=== PATIENT | male | born 1975 | race Two or more races ===

== ENCOUNTER 2017-02-06 14:54 | Inpatient (IN) | payer OTHER ==
[2017-02-06 20:37] VITALS: BMI 22.2
--- NOTE | 2017-02-06 22:18 | HP ---
CIWA Score - CIWA Score Nausea/Vomitin-Mild Nausea/No Vomiting Muscle Tremors: 4-Moderate,w/Arms Extend Anxiety: 4-Mod. Anxious/Guarded Agitation: 4-Moderately Restless Paroxysmal Sweats: 1-Minimal Palms Moist Orientation: 1-Uncertain about Date Tacttile Disturbances: 0-None Auditory Disturbances: 0-None Visual Disturbances: 0-None Headache: 1-Very Mild CIWA-Ar Total Score: 16 Admission ROS BHS - HPI Chief Complaint: withdrawal sx Allergies/Adverse Reactions: Allergies Allergy/AdvReac Type Severity Reaction Status Date / Time No Known Allergies Allergy Verified 06/13/16 11:32 History of Present Illness: 41 years old male with long history of alcohol cocaine nicotine dependence denies medical denies mental illness is admitted to detox Exam Limitations: No Limitations - Ebola screening Have you traveled outside of the country in the last 21 days: No Have you had contact with anyone from an Ebola affected area: No Have you been sick,other than usual withdrawal symptoms: No Do you have a fever: No - Review of Systems Constitutional: Chills, Loss of Appetite, Changes in sleep, Unintentional Wgt. Loss, Unexplained wgt Loss EENT: reports: No Symptoms Reported Respiratory: reports: No Symptoms reported Cardiac: reports: No Symptoms Reported GI: reports: Nausea, Poor Appetite, Poor Fluid Intake, Abdominal cramping : reports: No Symptoms Reported Integumentary: reports: Change in Color (iv opioid hands) Neuro: reports: Tremors Endocrine: reports: No Symptoms Reported Hematology: reports: No Symptoms Reported Psychiatric: reports: Judgement Intact, Mood/Affect Appropiate Other Systems: Reviewed and Negative Patient History - Patient Medical History Hx Anemia: No Hx Asthma: No Hx Chronic Obstructive Pulmonary Disease (COPD): No Hx Cancer: No Hx Cardiac Disorders: No Hx Congestive Heart Failure: No Hx Hypertension: No Hx Hypercholesterolemia: No Hx Pacemaker: No HX Cerebrovascular Accident: No Hx Seizures: No Hx Dementia: No Hx Diabetes: No Hx Gastrointestinal Disorders: No Hx Liver Disease: No Hx Genitourinary Disorders: No Hx Sexually Transmitted Disorders: No Hx Renal Disease (ESRD): No Hx Thyroid Disease: No Hx Human Immunodeficiency Virus (HIV): No (NEGATIVE HX-11/27) Hx Hepatitis C: No Hx Depression: No Hx Suicide Attempt: No Hx Bipolar Disorder: No Hx Schizophrenia: No - Patient Surgical History Past Surgical History: No Hx Neurologic Surgery: No Hx Cataract Extraction: No Hx Cardiac Surgery: No Hx Lung Surgery: No Hx Breast Surgery: No Hx Breast Biopsy: No Hx Abdominal Surgery: No Hx Appendectomy: No Hx Cholecystectomy: No Hx Genitourinary Surgery: No Hx Orthopedic Surgery: No - PPD History Previous Implant?: Yes Documented Results: Positive w/o proof Implanted On Prior [facility] Admission?: No Results: CXR(-)05/05/15 PPD to be Administered?: No - Smoking Cessation Smoking history: Current every day smoker Have you smoked in the past 12 months: Yes Aproximately how many cigarettes per day: 20 Cigars Per Day: 0 Hx Chewing Tobacco Use: No Initiated information on smoking cessation: Yes 'Breaking Loose' booklet given: 02/06/17 - Substance & Tx. History Hx Alcohol Use: Yes Hx Substance Use: Yes Substance Use Type: Alcohol, Cocaine, Heroin, Opiates Hx Substance Use Treatment: Yes - Substances Abused Alcohol Route: Oral Frequency: Daily Amount used: Vodka 3 pints Age of first use: 18 Date of Last Use: 02/06/17 Alprazolam (Xanax) Route: Oral Frequency: Daily Amount used: 4 mg Age of first use: 31 Date of Last Use: 02/06/17 Benzodiazepine (Klonopin) Route: Oral Frequency: Daily Amount used: 5mg Age of first use: 33 Date of Last Use: 02/05/17 Family Disease History - Family Disease History Family Disease History: Heart Disease: Father (), Mother () Admission Physical Exam [facility] - Vital Signs Vital Signs: Vital Signs - 24 hr 02/06/17 20:33 Temperature 96.9 F L Pulse Rate 61 Respiratory 20 Rate Blood Pressure 103/63 - Physical General Appearance: Yes: Appropriately Dressed, Mild Distress, Thin, Tremorous, Irritable, Sweating, Anxious HEENTM: Yes: Hearing grossly Normal, Normal ENT Inspection, Normocephalic, Normal Voice Respiratory: Yes: Chest Non-Tender, Lungs Clear, Normal Breath Sounds, No Respiratory Distress, No Accessory Muscle Use Neck: Yes: Supple, Trachea in good position Breast: Yes: Breasts Symetrical Cardiology: Yes: Regular Rhythm, S1, S2, Bradycardia Abdominal: Yes: Non Tender, Soft Genitourinary: Yes: Within Normal Limits Back: Yes: Normal Inspection Musculoskeletal: Yes: full range of Motion, Gait Steady Extremities: Yes: Normal Range of Motion, Non-Tender, Tremors Neurological: Yes: Alert, Motor Strength 5/5, Normal Mood/Affect, Normal Response Integumentary: Yes: Warm Lymphatic: Yes: Within Normal Limits - Diagnostic (1) Methadone maintenance therapy patient Current Visit: Yes Status: Chronic Comment: 60 mg verification pending (2) Nicotine dependence Current Visit: Yes Status: Acute Qualifiers: Nicotine product type: cigarettes Substance use status: in withdrawal Qualified Code(s): F17.213 - Nicotine dependence, cigarettes, with withdrawal (3) Alcohol dependence with uncomplicated withdrawal Current Visit: Yes Status: Acute (4) Sedative, hypnotic or anxiolytic dependence with withdrawal, uncomplicated Current Visit: Yes Status: Acute (5) Positive PPD, treated Current Visit: Yes Status: Resolved (6) Weight loss Current Visit: Yes Status: Acute Cleared for Admission [facility] - Detox or Rehab [facility] Level of Care: Medically Managed Detox Regimen/Protocol: Librium [facility] Breath Alcohol Content Breath Alcohol Content: 0 Urine Drug Screen - Results Drug Screen Negative: No Urine Drug Screen Results: YULIET-Cocaine, OPI-Opiates, MTD-Methadone
[2017-02-06] MEDS ORDERED: LOPERAMIDE HCL 2 MG CAPSULE PO PRN (22:23)
[2017-02-06] MEDS ORDERED: IBUPROFEN 400 MG TABLET (FP) PO PRN (22:23)
[2017-02-06] MEDS ORDERED: P-EPHED 60MG/TRIPROLIDI 2.5MG TABLET PO PRN (22:23)
[2017-02-06] MEDS ORDERED: MAGNESIUM CITRATE 300 ML BOTTLE PO PRN (22:23)
[2017-02-06] MEDS ORDERED: guaiFENesin/D-METHORPHAN HB 10 ML UNIT-DOSE CUPS PO PRN (22:23)
[2017-02-06] MEDS ORDERED: chlordiazePOXIDE HCL 25 MG CAPSULE PO PRN (22:23)
[2017-02-06] MEDS ORDERED: NICOTINE POLACRILEX 4 MG GUM BC PRN (22:23)
[2017-02-06] MEDS ORDERED: MENTHOL/PHENOL 1 EACH UD MM PRN (22:23)
[2017-02-06] MEDS ORDERED: ACETAMINOPHEN 325 MG TABLET (FP) PO PRN (22:23)
[2017-02-06] MEDS ORDERED: MAG HYDROX/AL HYDROX/SIMETH 30 ML UNIT-DOSE CUP PO PRN (22:23)
[2017-02-06] MEDS ORDERED: MAGNESIUM HYDROX 2400MG/30ML ORAL SUSPENSION 30 ML CUP PO PRN (22:23)
[2017-02-06] MEDS ORDERED: diphenhydrAMINE HCL 50 MG CAPSULE PO PRN (22:23)
[2017-02-06] MEDS: chlordiazePOXIDE HCL 25 MG CAPSULE PO SCH (23:12)
[2017-02-07] MEDS: chlordiazePOXIDE HCL 25 MG CAPSULE PO SCH ×4 (05:49→22:33)
[2017-02-07] MEDS ORDERED: METHADONE HCL 40 MG DISPERSABLE TABLET PO SCH (06:30)
[2017-02-07] MEDS ORDERED: METHADONE 40 MG, METHADONE (DETOX) 20 MG PO SCH (06:45)
[2017-02-07] MEDS ORDERED: METHADONE HCL 40 MG DISPERSABLE TABLET ONE (07:18)
[2017-02-07] MEDS ORDERED: METHADONE HCL 10 MG TABLET (FOR DETOX USE ONLY) ONE (07:18)
[2017-02-07] MEDS: METHADONE 40 MG, METHADONE (DETOX) 20 MG PO SCH (07:19)
[2017-02-07] MEDS: PRENATAL VITAMINS W/ FOLIC ACID TABLET (FP) PO SCH (10:34)
[2017-02-07] MEDS: NICOTINE 21 MG/24 HOURS TOPICAL PATCH TD SCH (10:35)
--- NOTE | 2017-02-07 12:08 | PN ---
S CIWA - CIWA Score Nausea/Vomitin Muscle Tremors: 3 Anxiety: 4-Mod. Anxious/Guarded Agitation: 2 Paroxysmal Sweats: 3 Orientation: 1-Uncertain about Date Tacttile Disturbances: 1-Very Mild Itch/Numbness Auditory Disturbances: 2-Mild Harshness/Frighten Visual Disturbances: 0-None Headache: 0-None Present CIWA-Ar Total Score: 18 BHS Progress Note (SOAP) Subjective: Interrupted Sleep, Tremors, Sweating. Objective: PT. A & O X 2 (DISORIENTED ABOUT DAY / DATE). PT. OBSERVED AMBULATING ON UNIT. PT. DENIES DIZZINESS / LIGHTHEADEDNESS. 02/07/17 12:05 Vital Signs Temperature 97.3 F L 02/07/17 09:10 Pulse Rate 67 02/07/17 09:10 Respiratory Rate 18 02/07/17 09:10 Blood Pressure 88/55 02/07/17 09:10 O2 Sat by Pulse Oximetry (%) 02/07/17 12:07 AWAITING ADMISSION LABS TO BE DRAWN. 02/07/17 12:08 Assessment: 02/07/17 12:07 WITHDRAWAL SYMPTOMS. Plan: CONTINUE DETOX. INCREASE PO FLUID INTAKE.
--- NOTE | 2017-02-07 13:11 | EKG ---
Test Reason : Blood Pressure : / mmHG Vent. Rate : 058 BPM Atrial Rate : 058 BPM P-R Int : 178 ms QRS Dur : 086 ms QT Int : 458 ms P-R-T Axes : 074 077 071 degrees QTc Int : 449 ms SINUS BRADYCARDIA POSSIBLE LEFT ATRIAL ENLARGEMENT LEFT VENTRICULAR HYPERTROPHY EARLY REPOLARIZATION ABNORMAL ECG NO PREVIOUS ECGS AVAILABLE Confirmed by BJORN AZUL, KATHERIN ([id number]) on 02/07/2017 1:11:17 PM Referred By: Danial Rashid Confirmed By:KATHERIN MILAN MD
[2017-02-07] MEDS: THIAMINE HCL 100 MG TABLET (FP) PO SCH (22:33)
[2017-02-08] MEDS ORDERED: METHADONE HCL 10 MG TABLET (FOR DETOX USE ONLY) ONE (04:37)
[2017-02-08] MEDS ORDERED: METHADONE HCL 40 MG DISPERSABLE TABLET ONE (04:37)
[2017-02-08] MEDS: METHADONE 40 MG, METHADONE (DETOX) 20 MG PO SCH (05:47)
[2017-02-08] MEDS: chlordiazePOXIDE HCL 25 MG CAPSULE PO SCH ×3 (05:48→17:01)
[2017-02-08] MEDS: PRENATAL VITAMINS W/ FOLIC ACID TABLET (FP) PO SCH (10:37)
[2017-02-08] MEDS: NICOTINE 21 MG/24 HOURS TOPICAL PATCH TD SCH (10:37)
--- NOTE | 2017-02-08 12:49 | PN ---
S CIWA - CIWA Score Nausea/Vomitin-No Nausea/No Vomiting Muscle Tremors: 3 Anxiety: 3 Agitation: 4-Moderately Restless Paroxysmal Sweats: 3 Orientation: 0-Oriented Tacttile Disturbances: 0-None Auditory Disturbances: 0-None Visual Disturbances: 0-None Headache: 0-None Present CIWA-Ar Total Score: 13 BHS Progress Note (SOAP) Subjective: Sweating,interrupted sleep,restless,tremors,anxiety Objective: 02/08/17 12:47 Vital Signs - 8 hr 02/08/17 02/08/17 06:15 09:21 Temperature 96.8 F L 99.8 F H Pulse Rate 57 L 65 Respiratory 18 18 Rate Blood Pressure 102/65 114/74 Assessment: 02/08/17 12:48 Withdrawal sx. Plan: Continue detox
[2017-02-08] MEDS: chlordiazePOXIDE 5 MG CAPSULE PO SCH (22:25)
[2017-02-08] MEDS: THIAMINE HCL 100 MG TABLET (FP) PO SCH (22:25)
[2017-02-09] MEDS ORDERED: METHADONE HCL 10 MG TABLET (FOR DETOX USE ONLY) ONE (03:18)
[2017-02-09] MEDS ORDERED: METHADONE HCL 40 MG DISPERSABLE TABLET ONE (03:18)
[2017-02-09] MEDS: chlordiazePOXIDE 5 MG CAPSULE PO SCH ×3 (05:58→17:51)
[2017-02-09] MEDS: METHADONE 40 MG, METHADONE (DETOX) 20 MG PO SCH (05:58)
[2017-02-09] MEDS: NICOTINE 21 MG/24 HOURS TOPICAL PATCH TD SCH (10:25)
[2017-02-09] MEDS: PRENATAL VITAMINS W/ FOLIC ACID TABLET (FP) PO SCH (10:25)
--- NOTE | 2017-02-09 11:46 | PN ---
BHS Progress Note (SOAP) Subjective: muscle aches, shakes, sweats, N/V Objective: 02/09/17 11:45 Vital Signs - 8 hr 02/09/17 02/09/17 06:23 10:20 Temperature 97.5 F L 99.0 F Pulse Rate 58 L 74 Respiratory 18 18 Rate Blood Pressure 100/67 107/70 Assessment: 02/09/17 11:46 withdrawal sx Plan: continue detox
[2017-02-09] MEDS: THIAMINE HCL 100 MG TABLET (FP) PO SCH (22:21)
[2017-02-09] MEDS: chlordiazePOXIDE HCL 10 MG CAPSULE PO SCH (22:21)
[2017-02-10] MEDS ORDERED: METHADONE HCL 10 MG TABLET (FOR DETOX USE ONLY) ONE (04:55)
[2017-02-10] MEDS ORDERED: METHADONE HCL 40 MG DISPERSABLE TABLET ONE (04:56)
[2017-02-10] MEDS: chlordiazePOXIDE HCL 10 MG CAPSULE PO SCH ×2 (05:22→10:51)
[2017-02-10] MEDS: METHADONE 40 MG, METHADONE (DETOX) 20 MG PO SCH (05:22)
[2017-02-10 06:25] VITALS: BP 100/62; PULSE 61; TEMP 97.2
[2017-02-10] MEDS: NICOTINE 21 MG/24 HOURS TOPICAL PATCH TD SCH (10:51)
[2017-02-10] MEDS: PRENATAL VITAMINS W/ FOLIC ACID TABLET (FP) PO SCH (10:51)
--- NOTE | 2017-02-10 11:54 | DS ---
[facility] Detox Discharge Summary Admission Date: 02/06/17 Discharge Date: 02/10/17 - History Present History: Alcohol Dependence, Sedative Dependence, MMTP Pertinent Past History: PPD Positive - Physical Exam Results Vital Signs: Vital Signs Temperature 97.2 F L 02/10/17 06:25 Pulse Rate 61 02/10/17 06:25 Respiratory Rate 18 02/10/17 06:25 Blood Pressure 100/62 02/10/17 06:25 O2 Sat by Pulse Oximetry (%) Pertinent Admission Physical Exam Findings: Withdrawal symptoms No admission labs: patient refused - Treatment Hospital Course: Detox Protocol Followed, Detoxed Safely, Responded well, Discharged Condition Good - Medication Discharge Medications: Ambulatory Orders NK [No Known Home Medication] 11/24/15 - Diagnosis (1) Alcohol dependence with uncomplicated withdrawal Status: Acute (2) Nicotine dependence Status: Chronic Qualifiers: Nicotine product type: cigarettes Substance use status: in withdrawal Qualified Code(s): F17.213 - Nicotine dependence, cigarettes, with withdrawal (3) Sedative, hypnotic or anxiolytic dependence with withdrawal, uncomplicated Status: Acute (4) Methadone maintenance therapy patient Status: Chronic (5) PPD positive Status: Chronic - AMA Did Patient Leave Against Medical Advice: No
== END 2017-02-10 11:21 | disposition home or self-care (01) | DRG 773 ==
LOC: YASAS 14:54 → Y3N 21:47
PROVIDERS: ADMIT Internal Medicine; ATTEND Internal Medicine
PROC: HZ2ZZZZ Detoxification Services for Substance Abuse Treatment (ICD-10-PCS; principal; 2017-02-06)
DX: F13.230 Sedative, hypnotic or anxiolytic dependence with withdrawal, uncomplicated (principal); F11.20 Opioid dependence, uncomplicated; F10.230 Alcohol dependence with withdrawal, uncomplicated; F17.213 Nicotine dependence, cigarettes, with withdrawal; R00.1 Bradycardia, unspecified; R76.11 Nonspecific reaction to tuberculin skin test without active tuberculosis; Z87.898 Personal history of other specified conditions
CPT/HCPCS: 93005; 93010

== ENCOUNTER 2017-02-12 14:24 | Inpatient (IN) | payer OTHER ==
[2017-02-12 16:50] VITALS: BMI 23.3
[2017-02-12] MEDS ORDERED: LOPERAMIDE HCL 2 MG CAPSULE PO PRN (18:25)
[2017-02-12] MEDS ORDERED: NICOTINE 14 MG/24 HOURS TOPICAL PATCH TD PRN (18:25)
[2017-02-12] MEDS ORDERED: guaiFENesin/D-METHORPHAN HB 10 ML UNIT-DOSE CUPS PO PRN (18:25)
[2017-02-12] MEDS ORDERED: MAGNESIUM CITRATE 300 ML BOTTLE PO PRN (18:25)
[2017-02-12] MEDS ORDERED: NICOTINE POLACRILEX 2 MG GUM BUC PRN (18:25)
[2017-02-12] MEDS ORDERED: diphenhydrAMINE HCL 50 MG CAPSULE PO PRN (18:25)
[2017-02-12] MEDS ORDERED: hydrOXYzine PAMOATE 50 MG CAPSULE (FP) PO PRN (18:25)
[2017-02-12] MEDS ORDERED: ACETAMINOPHEN 325 MG TABLET (FP) PO PRN (18:25)
[2017-02-12] MEDS ORDERED: MAG HYDROX/AL HYDROX/SIMETH 30 ML UNIT-DOSE CUP PO PRN (18:25)
[2017-02-12] MEDS ORDERED: P-EPHED 60MG/TRIPROLIDI 2.5MG TABLET PO PRN (18:25)
[2017-02-12] MEDS ORDERED: IBUPROFEN 400 MG TABLET (FP) PO PRN (18:25)
[2017-02-12] MEDS ORDERED: MENTHOL/PHENOL 1 EACH UD MM PRN (18:25)
[2017-02-12] MEDS ORDERED: MAGNESIUM HYDROX 2400MG/30ML ORAL SUSPENSION 30 ML CUP PO PRN (18:25)
--- NOTE | 2017-02-12 18:25 | HP ---
FARHANA AZUL Rehab Assess/Revision - Admission History Admitted to Rehab from: [facility] Date of Admission to Rehab: 02/12/17 - Vital signs Vital Signs: Vital Signs Period Temp Pulse Resp BP Sys/Paez Pulse Ox Last 24 Hr 97.7 F 72 18 109/69 - Findings Detox History & Physical reviewed: Yes Concur with findings: Yes Comments/Additional Findings: transferred from detox to rehab admission as per protocol. patient is unable to find recent 2 months chest x ray result upon admission
[2017-02-12] MEDS ORDERED: NICOTINE 21 MG/24 HOURS TOPICAL PATCH TD PRN (18:29)
[2017-02-12] MEDS: THIAMINE HCL 100 MG TABLET (FP) PO SCH (22:56)
[2017-02-13] MEDS ORDERED: METHADONE HCL 40 MG DISPERSABLE TABLET ONE (07:41)
[2017-02-13] MEDS ORDERED: METHADONE HCL 10 MG TABLET ONE (07:41)
[2017-02-13] MEDS: METHADONE 40 MG, METHADONE 20 MG PO SCH (07:44)
[2017-02-13] MEDS ORDERED: METHADONE HCL 40 MG DISPERSABLE TABLET PO SCH (07:45)
[2017-02-13] MEDS: PRENATAL VITAMINS W/ FOLIC ACID TABLET (FP) PO SCH (10:15)
--- NOTE | 2017-02-13 11:48 | HP ---
Psychiatrist Admission - Data Date of interview: 02/13/17 Admission source: 3N Identifying data: This is the third inpatient rehabilitation admission for this 41 year old single male father of one, who is unemployed and domiciled. Medical History: None reported, smokes cigarettes 1PPD, on MMTP 60 mg/daily. Psychiatric History: Denies history of psychiatric treatment, but has insomnia and treated with ambien. Physical/Sexual Abuse/Trauma History: Denies history of sexual, physical and verbla abuse Vital Signs: Vital Signs - 24 hr 02/12/17 02/13/17 02/13/17 16:48 01:52 03:30 Temperature 97.7 F Pulse Rate 72 Respiratory 18 18 18 Rate Blood Pressure 109/69 02/13/17 07:18 Temperature 97.7 F Pulse Rate 67 Respiratory 18 Rate Blood Pressure 123/78 Allergies/Adverse Reactions: Allergies Allergy/AdvReac Type Severity Reaction Status Date / Time No Known Allergies Allergy Verified 02/12/17 17:08 Date of last physical exam: 02/06/17 - Substance Abuse/Tx History Substance Use Type: Alcohol (3 pints of vodka daily), Cocaine, Tranquilizers ( xanax 4 mg, klonopin 5 mg daily) Hx Substance Use Treatment: Yes - Admission Criteria Previous failed treatment: Yes Poor recovery environment: Yes Comorbidities: No Lacks judgement: Yes Mental Status Exam - Mental Status Exam Alert and Oriented to: Time, Place, Person Cognitive Function: Grossly Intact Patient Appearance: Well Groomed Mood: Hopeful Affect: Appropriate, Mood Congruent Patient Behavior: Appropriate, Cooperative Speech Pattern: Clear, Appropriate Voice Loudness: Normal Thought Process: Intact, Goal Oriented Thought Disorder: Not Present Hallucinations: Denies Suicidal Ideation: Denies Homicidal Ideation: Denies Insight/Judgement: Fair Sleep: Poorly, Difficulty falling asleep Appetite: Fair Muscle strength/Tone: Normal Gait/Station: Normal Psychiatric Findings - Problem List ([place] 1, 2,3) (1) Opioid dependence on agonist therapy Current Visit: No Status: Acute (2) Sedative dependence Current Visit: No Status: Acute (3) Alcohol dependence Current Visit: No Status: Chronic Qualifiers: Substance use status: uncomplicated Qualified Code(s): F10.20 - Alcohol dependence, uncomplicated (4) Insomnia Current Visit: Yes Status: Acute - Initial Treatment Plan Initial Treatment Plan: Indications and properties of Belsomra discussed with the patient, he agreed to start, will add 10 mg po hs, continue to monitor progress.
[2017-02-13] MEDS: THIAMINE HCL 100 MG TABLET (FP) PO SCH (21:33)
[2017-02-13] MEDS ORDERED: SUVOREXANT 10 MG TABLET PO PRN (22:00)
[2017-02-14] MEDS ORDERED: METHADONE HCL 40 MG DISPERSABLE TABLET ONE (04:09)
[2017-02-14] MEDS ORDERED: METHADONE HCL 10 MG TABLET ONE (04:09)
[2017-02-14] MEDS: METHADONE 40 MG, METHADONE 20 MG PO SCH (06:04)
[2017-02-14] MEDS: PRENATAL VITAMINS W/ FOLIC ACID TABLET (FP) PO SCH (10:23)
[2017-02-14] MEDS: THIAMINE HCL 100 MG TABLET (FP) PO SCH (21:36)
[2017-02-15] MEDS ORDERED: METHADONE HCL 10 MG TABLET ONE (04:53)
[2017-02-15] MEDS ORDERED: METHADONE HCL 40 MG DISPERSABLE TABLET ONE (04:53)
[2017-02-15] MEDS: METHADONE 40 MG, METHADONE 20 MG PO SCH (06:30)
[2017-02-15] MEDS: PRENATAL VITAMINS W/ FOLIC ACID TABLET (FP) PO SCH (10:05)
[2017-02-15] MEDS: THIAMINE HCL 100 MG TABLET (FP) PO SCH (22:03)
[2017-02-16] MEDS ORDERED: METHADONE HCL 10 MG TABLET ONE (05:12)
[2017-02-16] MEDS ORDERED: METHADONE HCL 40 MG DISPERSABLE TABLET ONE (05:12)
[2017-02-16] MEDS: METHADONE 40 MG, METHADONE 20 MG PO SCH (06:10)
[2017-02-16] MEDS: PRENATAL VITAMINS W/ FOLIC ACID TABLET (FP) PO SCH (10:11)
[2017-02-16] MEDS: THIAMINE HCL 100 MG TABLET (FP) PO SCH (22:49)
[2017-02-17] MEDS ORDERED: METHADONE HCL 10 MG TABLET ONE (05:34)
[2017-02-17] MEDS ORDERED: METHADONE HCL 40 MG DISPERSABLE TABLET ONE (05:34)
[2017-02-17] MEDS: METHADONE 40 MG, METHADONE 20 MG PO SCH (06:19)
[2017-02-17] MEDS: PRENATAL VITAMINS W/ FOLIC ACID TABLET (FP) PO SCH (10:07)
[2017-02-17] MEDS: THIAMINE HCL 100 MG TABLET (FP) PO SCH (22:29)
[2017-02-18] MEDS ORDERED: METHADONE HCL 10 MG TABLET ONE (05:41)
[2017-02-18] MEDS ORDERED: METHADONE HCL 40 MG DISPERSABLE TABLET ONE (05:42)
[2017-02-18] MEDS: METHADONE 40 MG, METHADONE 20 MG PO SCH (06:16)
[2017-02-18] MEDS: PRENATAL VITAMINS W/ FOLIC ACID TABLET (FP) PO SCH (10:18)
[2017-02-18] MEDS: THIAMINE HCL 100 MG TABLET (FP) PO SCH (21:47)
[2017-02-19] MEDS ORDERED: METHADONE HCL 10 MG TABLET ONE (04:15)
[2017-02-19] MEDS ORDERED: METHADONE HCL 40 MG DISPERSABLE TABLET ONE (04:15)
[2017-02-19] MEDS: METHADONE 40 MG, METHADONE 20 MG PO SCH (06:17)
[2017-02-19] MEDS: PRENATAL VITAMINS W/ FOLIC ACID TABLET (FP) PO SCH (10:20)
[2017-02-19] MEDS: THIAMINE HCL 100 MG TABLET (FP) PO SCH (22:28)
[2017-02-20] MEDS ORDERED: METHADONE HCL 10 MG TABLET ONE (03:42)
[2017-02-20] MEDS ORDERED: METHADONE HCL 40 MG DISPERSABLE TABLET ONE (03:42)
[2017-02-20] MEDS: METHADONE 40 MG, METHADONE 20 MG PO SCH (05:55)
[2017-02-20] MEDS: PRENATAL VITAMINS W/ FOLIC ACID TABLET (FP) PO SCH (10:34)
[2017-02-20] MEDS: THIAMINE HCL 100 MG TABLET (FP) PO SCH (21:49)
[2017-02-21] MEDS ORDERED: METHADONE HCL 40 MG DISPERSABLE TABLET ONE (05:07)
[2017-02-21] MEDS ORDERED: METHADONE HCL 10 MG TABLET ONE (05:07)
[2017-02-21] MEDS: METHADONE 40 MG, METHADONE 20 MG PO SCH (05:51)
[2017-02-21] MEDS: PRENATAL VITAMINS W/ FOLIC ACID TABLET (FP) PO SCH (10:27)
[2017-02-21] MEDS: THIAMINE HCL 100 MG TABLET (FP) PO SCH (21:56)
[2017-02-22] MEDS ORDERED: METHADONE HCL 10 MG TABLET ONE (03:49)
[2017-02-22] MEDS ORDERED: METHADONE HCL 40 MG DISPERSABLE TABLET ONE (03:49)
[2017-02-22] MEDS: METHADONE 40 MG, METHADONE 20 MG PO SCH (06:17)
[2017-02-22] MEDS: PRENATAL VITAMINS W/ FOLIC ACID TABLET (FP) PO SCH (10:39)
[2017-02-22] MEDS: THIAMINE HCL 100 MG TABLET (FP) PO SCH (21:57)
[2017-02-23] MEDS ORDERED: METHADONE HCL 10 MG TABLET ONE (03:53)
[2017-02-23] MEDS ORDERED: METHADONE HCL 40 MG DISPERSABLE TABLET ONE (03:53)
[2017-02-23] MEDS: METHADONE 40 MG, METHADONE 20 MG PO SCH (05:58)
[2017-02-23] MEDS: PRENATAL VITAMINS W/ FOLIC ACID TABLET (FP) PO SCH (10:07)
[2017-02-23] MEDS: THIAMINE HCL 100 MG TABLET (FP) PO SCH (22:50)
[2017-02-24] MEDS ORDERED: METHADONE HCL 10 MG TABLET ONE (03:55)
[2017-02-24] MEDS ORDERED: METHADONE HCL 40 MG DISPERSABLE TABLET ONE (03:56)
[2017-02-24] MEDS: METHADONE 40 MG, METHADONE 20 MG PO SCH (06:18)
[2017-02-24] MEDS: PRENATAL VITAMINS W/ FOLIC ACID TABLET (FP) PO SCH (10:17)
[2017-02-24] MEDS: THIAMINE HCL 100 MG TABLET (FP) PO SCH (22:06)
[2017-02-25] MEDS ORDERED: METHADONE HCL 10 MG TABLET ONE (05:12)
[2017-02-25] MEDS ORDERED: METHADONE HCL 40 MG DISPERSABLE TABLET ONE (05:12)
[2017-02-25] MEDS: METHADONE 40 MG, METHADONE 20 MG PO SCH (06:29)
[2017-02-25] MEDS: PRENATAL VITAMINS W/ FOLIC ACID TABLET (FP) PO SCH (10:08)
[2017-02-25] MEDS: THIAMINE HCL 100 MG TABLET (FP) PO SCH (22:52)
[2017-02-26] MEDS ORDERED: METHADONE HCL 10 MG TABLET ONE (03:49)
[2017-02-26] MEDS ORDERED: METHADONE HCL 40 MG DISPERSABLE TABLET ONE (03:50)
[2017-02-26] MEDS: METHADONE 40 MG, METHADONE 20 MG PO SCH (06:14)
[2017-02-26] MEDS: PRENATAL VITAMINS W/ FOLIC ACID TABLET (FP) PO SCH (10:10)
[2017-02-26] MEDS: THIAMINE HCL 100 MG TABLET (FP) PO SCH (22:25)
[2017-02-27] MEDS ORDERED: METHADONE HCL 40 MG DISPERSABLE TABLET ONE (04:12)
[2017-02-27] MEDS ORDERED: METHADONE HCL 10 MG TABLET ONE (04:12)
[2017-02-27] MEDS: METHADONE 40 MG, METHADONE 20 MG PO SCH (06:27)
[2017-02-27 06:54] VITALS: TEMP 98.1
--- NOTE | 2017-02-27 09:22 | PN ---
Psychiatric Progress Note Vital Signs: Vital Signs Period Temp Pulse Resp BP Sys/Paez Pulse Ox Last 24 Hr 98.1 F 82 18-18 105/72 Date of Session: 02/27/17 Chief Complaint:: Discharge Note HPI: Patient addressing Alcohol, Opoid and Sedative Dependence comorbid with Nicotine Dependence and Insomnia Current Medications: Active Medications Generic Name Dose Route Start Last Admin Trade Name Freq PRN Reason Stop Dose Admin Acetaminophen 650 mg 02/12/17 18:25 Tylenol - PO Q4H PRN FEVER OR PAIN Al Hydroxide/Mg Hydroxide 30 ml 02/12/17 18:25 Mylanta Oral Suspension - PO Q6H PRN DYSPEPSIA Diphenhydramine HCl 50 mg 02/12/17 18:25 Benadryl - PO HSMR1 PRN FOR ITCHING Eucalyptus/Menthol/Phenol/Sorbitol 1 each 02/12/17 18:25 Cepastat Lozenge - MM Q4H PRN SORE THROAT Guaifenesin 10 ml 02/12/17 18:25 Robitussin Dm - PO Q6H PRN COUGH Hydroxyzine Pamoate 50 mg 02/12/17 18:25 Vistaril - PO Q4H PRN AGITATION Ibuprofen 400 mg 02/12/17 18:25 Motrin - PO Q6H PRN PAIN Loperamide HCl 4 mg 02/12/17 18:25 Imodium - PO Q6H PRN DIARRHEA Magnesium Hydroxide 30 ml 02/12/17 18:25 Milk Of Magnesia - PO DAILY PRN CONSTIPATION Methadone HCl 40 mg/ Methadone 60 mg 02/25/17 06:00 02/27/17 06:27 HCl 20 mg PO 60 mg DAILY@0600 KALIN Administration Nicotine 21 mg 02/12/17 18:29 Nicoderm Patch - TD DAILY PRN WITHDRAWAL(CONT SUBST) Nicotine Polacrilex 2 mg 02/12/17 18:25 Nicorette Gum - BUC Q2H PRN NICOTINE REPLACEMENT RX Multivit/Folic Acid/Iron 1 tab 02/13/17 10:00 02/26/17 10:10 Vitamins ([facility]) - PO Not Given DAILY KALIN Pseudoephedrine/Triprolidine 1 combo 02/12/17 18:25 Actifed - PO TID PRN NASAL CONGESTION Thiamine HCl 100 mg 02/12/17 22:00 02/26/17 22:25 Vitamin B1 - PO 100 mg HS KALIN Administration Current Side Effect: No Lab tests ordered: Yes Lab tests reviewed: Yes Provider note:: Patient will complete this program on 02/28/17. He has met his treatment goals and will continue to address his issues in outpatient treatment at [facility] at [address] [place] [address]. Told signwriter that from his participation in this program, he haslearned the importance of "making meetings". He responded well to Belsomra 10 mg po HS prn for insomnia. He is stable for discharge on 02/28/17 Total face to face time:: 35 Mental Status Exam - Mental Status Exam Alert and Oriented to: Time, Place, Person Cognitive Function: Fair Patient Appearance: Well Groomed Mood: Hopeful, Euthymic Affect: Appropriate Patient Behavior: Cooperative Speech Pattern: Clear Voice Loudness: Normal Thought Process: Intact, Goal Oriented Thought Disorder: Not Present Hallucinations: Denies Suicidal Ideation: Denies Homicidal Ideation: Denies Insight/Judgement: Fair Sleep: Fair (with medication) Appetite: Fair Muscle strength/Tone: Normal Gait/Station: Normal Psychiatric Treatment Plan - Problem List (1) Alcohol dependence with uncomplicated withdrawal Current Visit: No (2) Sedative, hypnotic or anxiolytic dependence with withdrawal, uncomplicated Current Visit: No (3) Opioid dependence on agonist therapy Current Visit: No (4) Nicotine dependence Current Visit: No Qualifiers: Nicotine product type: cigarettes Substance use status: in withdrawal Qualified Code(s): F17.213 - Nicotine dependence, cigarettes, with withdrawal (5) Insomnia Current Visit: Yes (6) PPD positive Current Visit: No Initial treatment plan: Patient is discharged tomorrow and referred to [facility] for outpatient treatment
[2017-02-27] MEDS: PRENATAL VITAMINS W/ FOLIC ACID TABLET (FP) PO SCH (10:32)
[2017-02-27] MEDS: THIAMINE HCL 100 MG TABLET (FP) PO SCH (21:56)
[2017-02-28] MEDS ORDERED: METHADONE HCL 10 MG TABLET ONE (03:56)
[2017-02-28] MEDS ORDERED: METHADONE HCL 40 MG DISPERSABLE TABLET ONE (03:56)
[2017-02-28] MEDS: METHADONE 40 MG, METHADONE 20 MG PO SCH (06:29)
[2017-02-28 06:59] VITALS: BP 120/76; PULSE 71
== END 2017-02-28 09:37 | disposition home or self-care (01) | DRG 772 ==
LOC: YASAS 14:24 → Y3W 18:52
PROVIDERS: ADMIT Psychiatry & Neurology Psychiatry; ATTEND Psychiatry & Neurology Psychiatry
PROC: HZ42ZZZ Group Counseling for Substance Abuse Treatment, Cognitive-Behavioral (ICD-10-PCS; principal; 2017-02-12)
DX: F10.20 Alcohol dependence, uncomplicated (principal); F11.20 Opioid dependence, uncomplicated; F13.20 Sedative, hypnotic or anxiolytic dependence, uncomplicated; F17.210 Nicotine dependence, cigarettes, uncomplicated; G47.00 Insomnia, unspecified; R76.11 Nonspecific reaction to tuberculin skin test without active tuberculosis
CPT/HCPCS: 71020-TC

== ENCOUNTER 2019-01-07 08:30 | Inpatient (IN) | payer OTHER ==
[2019-01-07 09:16] VITALS: BMI 24.9
--- NOTE | 2019-01-07 09:49 | HP ---
CIWA Score Nausea/Vomitin Muscle Tremors: 2 Anxiety: 2 Agitation: 2 Paroxysmal Sweats: 1-Minimal Palms Moist Orientation: 0-Oriented Tacttile Disturbances: 1-Very Mild Itch/Numbness Auditory Disturbances: 1-Very Mild Visual Disturbances: 0-None Headache: 2-Mild CIWA-Ar Total Score: 14 - Admission Criteria [facility] Guidelines: Admission for Medically Managed Detox: Requires at least one of the followin. CIWA greater than 12 2. Seizures within the past 24 hours 3. Delirium tremens within the past 24 hours 4. Hallucinations within the past 24 hours 5. Acute intervention needed for co occurring medical disorder 6. Acute intervention needed for co occurring psychiatric disorder 7. Severe withdrawal that cannot be handled at a lower level of care (continued vomiting, continued diarrhea, abnormal vital signs) requiring intravenous medication and/or fluids 8. Admission ROS S - HPI Chief Complaint: i need help to stop drinking alcohol,xanax,cocaine,marijuana,heroin abused,mmtp 6o mgs/day,last medicated 01/05/19 Allergies/Adverse Reactions: Allergies Allergy/AdvReac Type Severity Reaction Status Date / Time No Known Allergies Allergy Verified 01/07/19 09:06 History of Present Illness: this 43 years od male with alcohol,cocaine,marijuana,xanax,heroin abused,mmtp 60 mgs/day,last medicated 01/05/19 multiple admissions in detox,last [facility] 06/03 but keep relapsing hepatitis c treated weight loss mmtp longest period of sobriety 2 years plan for rehab Exam Limitations: No Limitations - Ebola screening Have you traveled outside of the country in the last 21 days: No Have you had contact with anyone from an Ebola affected area: No Do you have a fever: No - Review of Systems Constitutional: Loss of Appetite, Malaise, Night Sweats, Changes in sleep, Weakness, Unintentional Wgt. Loss EENT: reports: Tearing, Nose Congestion Respiratory: reports: No Symptoms reported Cardiac: reports: No Symptoms Reported GI: reports: Diarrhea, Nausea, Abdominal cramping, Other : reports: No Symptoms Reported Musculoskeletal: reports: Back Pain, Muscle Pain Integumentary: reports: Dryness Neuro: reports: Headache, Tremors Endocrine: reports: No Symptoms Reported Hematology: reports: No Symptoms Reported Psychiatric: reports: No Sypmtoms Reported, Judgement Intact, Mood/Affect Appropiate, Orientated x3 Other Systems: Reviewed and Negative Patient History - Patient Medical History Hx Anemia: No Hx Asthma: No Hx Chronic Obstructive Pulmonary Disease (COPD): No Hx Cancer: No Hx Cardiac Disorders: No Hx Congestive Heart Failure: No Hx Hypertension: No Hx Hypercholesterolemia: No Hx Pacemaker: No HX Cerebrovascular Accident: No Hx Seizures: No Hx Dementia: No Hx Diabetes: No Hx Gastrointestinal Disorders: No Hx Liver Disease: No Hx Genitourinary Disorders: No Hx Sexually Transmitted Disorders: No Hx Renal Disease (ESRD): No Hx Thyroid Disease: No Hx Human Immunodeficiency Virus (HIV): No (NEGATIVE HX-last 06/03 negative) Hx Hepatitis C: Yes (treated) Hx Depression: No Hx Suicide Attempt: No Hx Bipolar Disorder: No Hx Schizophrenia: No Other Medical History: no suicidal,no homicidal - Patient Surgical History Past Surgical History: No Hx Neurologic Surgery: No Hx Cataract Extraction: No Hx Cardiac Surgery: No Hx Lung Surgery: No Hx Breast Surgery: No Hx Breast Biopsy: No Hx Abdominal Surgery: No Hx Appendectomy: No Hx Cholecystectomy: No Hx Genitourinary Surgery: No Hx Section: No Hx Orthopedic Surgery: No Anesthesia Reaction: No - PPD History Previous Implant?: Yes Documented Results: Positive w/o proof Implanted On Prior [facility] Admission?: No Results: CXR(-)05/05/15 PPD to be Administered?: No - Smoking Cessation Smoking history: Former smoker Have you smoked in the past 12 months: No Aproximately how many cigarettes per day: 20 If you are a former smoker, when did you quit?: 2017 Cigars Per Day: 0 Hx Chewing Tobacco Use: No Initiated information on smoking cessation: Yes 'Breaking Loose' booklet given: 01/07/19 - Substance & Tx. History Hx Alcohol Use: Yes Hx Substance Use: Yes Substance Use Type: Alcohol, Heroin, Tranquilizers Hx Substance Use Treatment: Yes ([facility] 06/03) - Substances abused Alcohol Substance route: Oral Frequency: Daily Amount used: 2 PINTS OF VODKA Age of first use: 18 Date of last use: 01/06/19 Heroin Substance route: Injection Frequency: Daily Amount used: 8 BAGS Age of first use: 18 Date of last use: 01/06/19 Alprazolam (Xanax) Substance route: Oral Frequency: Daily Amount used: 2 STICKS 4 mgs Age of first use: 18 Date of last use: 01/06/19 Cocaine Substance route: Injection Frequency: Daily Amount used: 80$ Age of first use: 14 Date of last use: 01/06/19 Marijuana/Hashish Substance route: Smoking Frequency: Daily Amount used: 10$ Age of first use: 14 Date of last use: 01/06/19 Family Disease History - Family Disease History Family Disease History: Heart Disease: Father (), Mother () Admission Physical Exam [facility] - Vital Signs Vital Signs: Vital Signs - 24 hr 01/07/19 09:02 Temperature 98.3 F Pulse Rate 70 Respiratory 18 Rate Blood Pressure 120/69 - Physical General Appearance: Yes: Moderate Distress, Tremorous, Irritable, Sweating, Anxious HEENTM: Yes: Normal ENT Inspection, Normocephalic, MAURICIO, Pharynx Normal Respiratory: Yes: Within Normal Limits, Lungs Clear, Normal Breath Sounds Neck: Yes: Within Normal Limits, Supple, Trachea in good position Breast: Yes: Within Normal Limits Cardiology: Yes: Within Normal Limits, Regular Rhythm, Regular Rate, S1, S2 Abdominal: Yes: Within Normal Limits, Normal Bowel Sounds, Non Tender, Flat, Soft Genitourinary: Yes: Within Normal Limits Back: Yes: Within Normal Limits, Normal Inspection, CVA Tenderness, Muscle Spasm Musculoskeletal: Yes: full range of Motion, Back pain, Muscle Pain, Muscle weakness Extremities: Yes: Within Normal Limits, Tremors Neurological: Yes: auto porter II-XII NML intact, Fully Oriented, Alert, Motor Strength 5/5 Integumentary: Yes: Dry, Track Chavez Lymphatic: Yes: Within Normal Limits - Diagnostic (1) Alcohol dependence with uncomplicated withdrawal Current Visit: No Status: Acute (2) Opioid dependence on agonist therapy Current Visit: No Status: Acute (3) Sedative, hypnotic or anxiolytic dependence with withdrawal, uncomplicated Current Visit: No Status: Acute (4) Weight loss Current Visit: No Status: Acute (5) Cocaine dependence Current Visit: No Status: Chronic Qualifiers: Substance use status: in withdrawal Qualified Code(s): F14.23 - Cocaine dependence with withdrawal (6) Nicotine dependence Current Visit: No Status: Chronic Qualifiers: Nicotine product type: cigarettes Substance use status: in withdrawal Qualified Code(s): F17.213 - Nicotine dependence, cigarettes, with withdrawal (7) PPD positive Current Visit: No Status: Chronic (8) Cannabis dependence Current Visit: Yes Status: Acute (9) IVDU (intravenous drug user) Current Visit: Yes Status: Acute Cleared for Admission [facility] - Detox or Rehab [facility] Level of Care: Medically Managed Detox Regimen/Protocol: Librium Breathalyzer - Breathalyzer Breathalyzer: 0 Urine Drug Screen - Test Device Lot number: [id number] Expiration date: 05/16/20 - Control Is test valid?: Yes - Results Drug screen NEGATIVE: No Urine drug screen results: YULIET-Cocaine, FEN-Fentanyl, MOP-Opiates, MTD-Methadone , BZO-Benzodiazepines Inpatient Rehab Admission - Rehab Decision to Admit Inpatient rehab admission?: No
[2019-01-07] MEDS ORDERED: MAG HYDROX/AL HYDROX/SIMETH 30 ML UNIT-DOSE CUP PO PRN (09:59)
[2019-01-07] MEDS ORDERED: BISMUTH SUBSALICYLATE 262 MG/15 ML BTL PO PRN (09:59)
[2019-01-07] MEDS ORDERED: chlordiazePOXIDE HCL 25 MG CAPSULE PO PRN (09:59)
[2019-01-07] MEDS ORDERED: hydrOXYzine PAMOATE 25 MG CAPSULE (FP) PO PRN (09:59)
[2019-01-07] MEDS ORDERED: ACETAMINOPHEN 325 MG TABLET (FP) PO PRN ×2 (09:59)
[2019-01-07] MEDS ORDERED: IBUPROFEN 400 MG TABLET (FP) PO PRN (09:59)
[2019-01-07] MEDS ORDERED: MAGNESIUM CITRATE 300 ML BOTTLE PO PRN (09:59)
[2019-01-07] MEDS ORDERED: MAGNESIUM HYDROX 2400MG/30ML ORAL SUSPENSION 30 ML CUP PO PRN (09:59)
[2019-01-07] MEDS ORDERED: METHOCARBAMOL 500 MG TABLET PO PRN (09:59)
[2019-01-07] MEDS ORDERED: MENTHOL/PHENOL 1 EACH UD MM PRN (09:59)
[2019-01-07] MEDS: chlordiazePOXIDE HCL 25 MG CAPSULE PO SCH ×3 (10:52→22:46)
[2019-01-07] MEDS: PRENATAL VITAMINS W/ FOLIC ACID TABLET (FP) PO SCH (10:53)
[2019-01-07] MEDS ORDERED: METHADONE HCL 10 MG TABLET PO ONE (11:35)
[2019-01-07] MEDS ORDERED: METHADONE 40 MG, METHADONE 20 MG PO ONE (11:50)
[2019-01-07] MEDS ORDERED: METHADONE HCL 10 MG TABLET ONE (12:18)
[2019-01-07] MEDS ORDERED: METHADONE HCL 40 MG DISPERSABLE TABLET ONE (12:19)
[2019-01-07 14:58] LABS: PH,URINE 5.5 (5.0-8.0); URINE APPEARANCE CLEAR; URINE BILIRUBIN NEGATIVE (NEGATIVE); URINE COLOR YELLOW; URINE GLUCOSE (UA) NEGATIVE (NEGATIVE); URINE KETONE NEGATIVE (NEGATIVE); URINE LEUK ESTERASE NEGATIVE (NEGATIVE); URINE NITRITE NEGATIVE (NEGATIVE); URINE PROTEIN NEGATIVE (NEGATIVE); URINE UROBILINOGEN 0.2 mg/dL (0.2-1.0)
[2019-01-07] MEDS: THIAMINE HCL 100 MG TABLET (FP) PO SCH (22:46)
[2019-01-08] MEDS ORDERED: METHADONE HCL 10 MG TABLET ONE (05:52)
[2019-01-08] MEDS ORDERED: METHADONE HCL 40 MG DISPERSABLE TABLET ONE (05:52)
[2019-01-08] MEDS: METHADONE 40 MG, METHADONE 20 MG PO SCH (05:53)
[2019-01-08] MEDS: chlordiazePOXIDE HCL 25 MG CAPSULE PO SCH ×4 (05:53→22:27)
[2019-01-08] MEDS ORDERED: METHADONE HCL 10 MG TABLET PO SCH (06:00)
[2019-01-08 10:18] LABS: ALBUMIN 3.1 g/dl (3.4-5.0); ALK PHOS 72 U/L (45-117); ANION GAP 6 MMOL/L (8-16); BILIRUBIN,TOTAL 0.5 mg/dL (0.2-1); BLOOD UREA NITROGEN 8 mg/dL (7-18); CALCIUM 8.8 mg/dL (8.5-10.1); CHLORIDE 105 mmol/L (98-107); CO2 28 mmol/L (21-32); CREATININE 0.9 mg/dL (0.55-1.3); GLUCOSE,RANDOM 99 mg/dL (74-106); POTASSIUM 3.6 mmol/L (3.5-5.1); SGOT/AST 35 U/L (15-37); SGPT/ALT 24 U/L (13-61); SODIUM 140 mmol/L (136-145); TOT PROT 6.5 g/dl (6.4-8.2)
[2019-01-08 10:21] LABS: HEMATOCRIT 36.2 % (35.4-49); HEMOGLOBIN 12.2 GM/dL (11.7-16.9); MCH 28.9 pg (25.7-33.7); MCHC 33.8 g/dl (32.0-35.9); MEAN CELL VOLUME 85.6 fl (80-96); MEAN PLT VOLUME 7.3 fl (7.5-11.1); PLATELET COUNT 217 K/MM3 (134-434); RBC 4.23 M/mm3 (4.00-5.60); RDW 12.6 % (11.9-15.9); WHITE BLOOD COUNT 3.7 K/mm3 (4.0-10.0)
[2019-01-08] MEDS: PRENATAL VITAMINS W/ FOLIC ACID TABLET (FP) PO SCH (10:26)
--- NOTE | 2019-01-08 12:28 | PN ---
[facility] CIWA - CIWA Score Nausea/Vomitin-No Nausea/No Vomiting Muscle Tremors: 3 Anxiety: 3 Agitation: 4-Moderately Restless Paroxysmal Sweats: 3 Orientation: 0-Oriented Tacttile Disturbances: 0-None Auditory Disturbances: 0-None Visual Disturbances: 0-None Headache: 0-None Present CIWA-Ar Total Score: 13 S Progress Note (SOAP) Subjective: sweats irritable body aches I have an abscess to my lower right leg from missing when i shoot Objective: 01/08/19 12:25 Vital Signs Temperature 98.2 F 01/08/19 09:13 Pulse Rate 69 01/08/19 09:13 Respiratory Rate 18 01/08/19 09:13 Blood Pressure 106/56 L 01/08/19 09:13 O2 Sat by Pulse Oximetry (%) Laboratory Tests 01/07/19 01/08/19 01/08/19 12:00 07:00 07:00 WBC 3.7 L RBC 4.23 Hgb 12.2 Hct 36.2 MCV 85.6 MCH 28.9 MCHC 33.8 RDW 12.6 Plt Count 217 MPV 7.3 L D Sodium 140 Potassium 3.6 Chloride 105 Carbon Dioxide 28 Anion Gap 6 L BUN 8 Creatinine 0.9 Creat Clearance w eGFR 92.54 Random Glucose 99 Calcium 8.8 Total Bilirubin 0.5 AST 35 ALT 24 Alkaline Phosphatase 72 Total Protein 6.5 Albumin 3.1 L Urine Color Yellow Urine Appearance Clear Urine pH 5.5 D Ur Specific [place] 1.036 H Urine Protein Negative Urine Glucose (UA) Negative Urine Ketones Negative Urine Blood Negative Urine Nitrite Negative Urine Bilirubin Negative Urine Urobilinogen 0.2 Ur Leukocyte Esterase Negative RPR Titer 01/08/19 07:00 WBC RBC Hgb Hct MCV MCH MCHC RDW Plt Count MPV Sodium Potassium Chloride Carbon Dioxide Anion Gap BUN Creatinine Creat Clearance w eGFR Random Glucose Calcium Total Bilirubin AST ALT Alkaline Phosphatase Total Protein Albumin Urine Color Urine Appearance Urine pH Ur Specific [place] Urine Protein Urine Glucose (UA) Urine Ketones Urine Blood Urine Nitrite Urine Bilirubin Urine Urobilinogen Ur Leukocyte Esterase RPR Titer Nonreactive aaox3 ambulating no acute distress Assessment: 01/08/19 12:26 withdrawal sx right lower leg assessed; noted a rd, warm to touch area to where pt states he injected. will start antibiotics encouraged to start warm compress and elevate leg Plan: continue detox increase fluids bactrim ds bid x 7 days encouraged elevation and warm compress
[2019-01-08] MEDS: SULFAMETHOXAZOLE/TRIMETHOPRIM 800MG/160MG D.S. TABLET PO SCH ×2 (13:01→22:27)
[2019-01-08] MEDS: MELATONIN 5 MG TABLETS PO PRN (22:27)
[2019-01-08] MEDS: THIAMINE HCL 100 MG TABLET (FP) PO SCH (22:27)
[2019-01-09] MEDS ORDERED: METHADONE HCL 10 MG TABLET ONE (04:54)
[2019-01-09] MEDS ORDERED: METHADONE HCL 40 MG DISPERSABLE TABLET ONE (04:54)
[2019-01-09] MEDS: METHADONE 40 MG, METHADONE 20 MG PO SCH (06:24)
[2019-01-09] MEDS: chlordiazePOXIDE HCL 25 MG CAPSULE PO SCH (06:25)
[2019-01-09] MEDS: PRENATAL VITAMINS W/ FOLIC ACID TABLET (FP) PO SCH (10:06)
[2019-01-09] MEDS: chlordiazePOXIDE HCL 10 MG CAPSULE PO SCH ×3 (10:06→22:33)
[2019-01-09] MEDS: SULFAMETHOXAZOLE/TRIMETHOPRIM 800MG/160MG D.S. TABLET PO SCH ×2 (10:07→22:33)
[2019-01-09] MEDS ORDERED: chlordiazePOXIDE HCL 10 MG CAPSULE PO PRN (11:00)
--- NOTE | 2019-01-09 11:20 | PN ---
[facility] CIWA - CIWA Score Nausea/Vomitin-No Nausea/No Vomiting Muscle Tremors: 3 Anxiety: 3 Agitation: 3 Paroxysmal Sweats: 3 Orientation: 0-Oriented Tacttile Disturbances: 0-None Auditory Disturbances: 0-None Visual Disturbances: 0-None Headache: 0-None Present CIWA-Ar Total Score: 12 S Progress Note (SOAP) Subjective: sweats body aches irritable interrupted sleep Objective: 01/09/19 11:19 Vital Signs Temperature 98.0 F 01/09/19 09:24 Pulse Rate 70 01/09/19 09:24 Respiratory Rate 18 01/09/19 09:24 Blood Pressure 124/62 01/09/19 09:24 O2 Sat by Pulse Oximetry (%) Laboratory Tests 01/07/19 01/08/19 01/08/19 12:00 07:00 07:00 WBC 3.7 L RBC 4.23 Hgb 12.2 Hct 36.2 MCV 85.6 MCH 28.9 MCHC 33.8 RDW 12.6 Plt Count 217 MPV 7.3 L D Sodium 140 Potassium 3.6 Chloride 105 Carbon Dioxide 28 Anion Gap 6 L BUN 8 Creatinine 0.9 Creat Clearance w eGFR 92.54 Random Glucose 99 Calcium 8.8 Total Bilirubin 0.5 AST 35 ALT 24 Alkaline Phosphatase 72 Total Protein 6.5 Albumin 3.1 L Urine Color Yellow Urine Appearance Clear Urine pH 5.5 D Ur Specific [place] 1.036 H Urine Protein Negative Urine Glucose (UA) Negative Urine Ketones Negative Urine Blood Negative Urine Nitrite Negative Urine Bilirubin Negative Urine Urobilinogen 0.2 Ur Leukocyte Esterase Negative RPR Titer 01/08/19 07:00 WBC RBC Hgb Hct MCV MCH MCHC RDW Plt Count MPV Sodium Potassium Chloride Carbon Dioxide Anion Gap BUN Creatinine Creat Clearance w eGFR Random Glucose Calcium Total Bilirubin AST ALT Alkaline Phosphatase Total Protein Albumin Urine Color Urine Appearance Urine pH Ur Specific [place] Urine Protein Urine Glucose (UA) Urine Ketones Urine Blood Urine Nitrite Urine Bilirubin Urine Urobilinogen Ur Leukocyte Esterase RPR Titer Nonreactive aaox3 ambulating no acute distress Assessment: 01/09/19 11:20 withdrawal sx Plan: continue detox increase fluids
[2019-01-09] MEDS: THIAMINE HCL 100 MG TABLET (FP) PO SCH (22:33)
[2019-01-10] MEDS ORDERED: METHADONE HCL 10 MG TABLET ONE (04:47)
[2019-01-10] MEDS ORDERED: METHADONE HCL 40 MG DISPERSABLE TABLET ONE (04:48)
[2019-01-10] MEDS: chlordiazePOXIDE HCL 10 MG CAPSULE PO SCH ×3 (06:03→22:47)
[2019-01-10] MEDS: METHADONE 40 MG, METHADONE 20 MG PO SCH (06:03)
[2019-01-10] MEDS: SULFAMETHOXAZOLE/TRIMETHOPRIM 800MG/160MG D.S. TABLET PO SCH ×2 (10:06→22:47)
[2019-01-10] MEDS: PRENATAL VITAMINS W/ FOLIC ACID TABLET (FP) PO SCH (10:06)
--- NOTE | 2019-01-10 10:56 | PN ---
S Progress Note Note: pt continue to c/o of the pain to right lower leg abscess bactrim ds bid has been ordered but the abscess appears more rd, warm to touch, painful when touched. pt agreed to go to [place] ED for evaluation. Dr. Chu was made informed and expecting pt.
--- NOTE | 2019-01-10 11:05 | PN ---
[facility] CIWA - CIWA Score Nausea/Vomitin-No Nausea/No Vomiting Muscle Tremors: 3 Anxiety: 2 Agitation: 3 Paroxysmal Sweats: 2 Orientation: 0-Oriented Tacttile Disturbances: 0-None Auditory Disturbances: 0-None Visual Disturbances: 0-None Headache: 0-None Present CIWA-Ar Total Score: 10 [facility] Progress Note (SOAP) Subjective: sweats irritable agitation Objective: 01/10/19 13:33 Vital Signs Temperature 98.1 F 01/10/19 09:51 Pulse Rate 77 01/10/19 09:51 Respiratory Rate 16 01/10/19 09:51 Blood Pressure 102/57 L 01/10/19 09:51 O2 Sat by Pulse Oximetry (%) aaox3 ambulating no acute distress Assessment: 01/10/19 13:33 withdrawal sx Plan: continue detox increase fluids
[2019-01-10] MEDS: BACITRACIN 0.9 GM PACKET TP SCH (13:33)
--- NOTE | 2019-01-10 17:08 | PN ---
[facility] Progress Note Note: patient returned from er [facility] post i and d of abscess of right leg,clear to return to continue detox,and continue bactrimds 1 tab po bid, continue detox regimen
[2019-01-10] MEDS: MELATONIN 5 MG TABLETS PO PRN (22:47)
[2019-01-10] MEDS: THIAMINE HCL 100 MG TABLET (FP) PO SCH (22:47)
[2019-01-11] MEDS: METHADONE 40 MG, METHADONE 20 MG PO SCH (05:26)
[2019-01-11] MEDS ORDERED: METHADONE HCL 40 MG DISPERSABLE TABLET ONE (05:26)
[2019-01-11] MEDS ORDERED: METHADONE HCL 10 MG TABLET ONE (05:26)
[2019-01-11 09:39] VITALS: BP 104/58; PULSE 84; TEMP 97.5
[2019-01-11] MEDS: SULFAMETHOXAZOLE/TRIMETHOPRIM 800MG/160MG D.S. TABLET PO SCH (10:57)
[2019-01-11] MEDS: PRENATAL VITAMINS W/ FOLIC ACID TABLET (FP) PO SCH (10:57)
[2019-01-11] MEDS: BACITRACIN 0.9 GM PACKET TP SCH (10:57)
[2019-01-11] MEDS: chlordiazePOXIDE HCL 10 MG CAPSULE PO SCH (10:57)
--- NOTE | 2019-01-11 12:22 | DS ---
[facility] Detox Discharge Summary Admission Date: 01/07/19 Discharge Date: 01/11/19 - History Present History: Alcohol Dependence, Cannabis Dependence, Cocaine Dependence, Opioid Dependence, Sedative Dependence, MMTP - Physical Exam Results Vital Signs: Vital Signs Temperature 97.5 F L 01/11/19 09:38 Pulse Rate 84 01/11/19 09:38 Respiratory Rate 18 01/11/19 09:38 Blood Pressure 104/58 L 01/11/19 09:38 O2 Sat by Pulse Oximetry (%) - Treatment Hospital Course: Detox Protocol Followed, Detoxed Safely, Responded well, Discharged Condition Good, Rehab Referral Accepted Patient has Accepted a Rehab Referral to: patient to be transferred to [facility] - Medication Discharge Medications: Ambulatory Orders NK [No Known Home Medication] 01/10/19 - AMA Did Patient Leave Against Medical Advice: No
== END 2019-01-11 13:19 | disposition other institution (70) | DRG 773 ==
LOC: YASAS 08:30 → Y6N 09:57
PROVIDERS: ADMIT Surgery; ATTEND Surgery
PROC: HZ2ZZZZ Detoxification Services for Substance Abuse Treatment (ICD-10-PCS; principal; 2019-01-07)
DX: F10.230 Alcohol dependence with withdrawal, uncomplicated (principal); F13.230 Sedative, hypnotic or anxiolytic dependence with withdrawal, uncomplicated; F11.20 Opioid dependence, uncomplicated; F14.20 Cocaine dependence, uncomplicated; F12.20 Cannabis dependence, uncomplicated; L03.115 Cellulitis of right lower limb; R63.4 Abnormal weight loss; Z68.25 Body mass index [BMI] 25.0-25.9, adult; Z87.891 Personal history of nicotine dependence
CPT/HCPCS: 36415; 80053; 81003; 85027; 86593

== ENCOUNTER 2019-01-10 12:03 | Emergency (ER) | payer OTHER ==
[2019-01-10 13:04] VITALS: BMI 25.7
--- NOTE | 2019-01-10 14:40 | PDOC ---
Documentation entered by Oliver Aguilar SCRIBE, acting as scribe for Jenny Barakat MD. Jenny Barakat MD: This documentation has been prepared by the neidaibeJeff Daniel, SCRIBE, under my direction and personally reviewed by me in its entirety. I confirm that the documentation accurately reflects all work, treatment, procedures, and medical decision making performed by me. Attending Attestation - Resident Resident Name: Doron Chavez - ED Attending Attestation I have performed the following: I have examined & evaluated the patient, The case was reviewed & discussed with the resident, I agree w/resident's findings & plan, Exceptions are as noted - HPI HPI: 01/10/19 13:56 The patient is a 43 year old with a past medical history of alcohol, cocaine, marijuana, xanax, and heroin abuse here today for evaluation of an abscess. The patient reports that he went to detox 3 days ago but used 2 days ago. Patient was sent in today due to an abscess on the back of his right ankle just above the achilles tendon. Patient denies headache, lightheadedness. Denies fever, chills. Denies chest pain, shortness of breath. Denies nausea, vomiting, diarrhea, abdominal pain. Allergies: NKA - Physicial Exam PE: GENERAL: Awake, alert, and fully oriented, in no acute distress HEAD: No signs of trauma EYES: PERRLA, EOMI, sclera anicteric, conjunctiva clear ENT: Auricles normal inspection, hearing grossly normal, nares patent, oropharynx clear without exudates. Moist mucosa NECK: Normal ROM, supple, no lymphadenopathy, JVD, or masses LUNGS: Breath sounds equal, clear to auscultation bilaterally. No wheezes, and no crackles HEART: Regular rate and rhythm, normal S1 and S2, no murmurs, rubs or gallops ABDOMEN: Soft, nontender, normoactive bowel sounds. No guarding, no rebound. No masses EXTREMITIES: Normal range of motion, no edema. No clubbing or cyanosis. No cords, erythema, or tenderness NEUROLOGICAL: Cranial nerves II through XII grossly intact. Normal speech, normal gait. Motor and sensation intact SKIN: Warm, Dry, normal turgor. R lower calf with erythematous, warm, fluctuant lesion. No open lesions overlying. - Medical Decision Making Bedside sono showed subcutaneous abscess, drained at the bedside. Will DC back to [facility].
--- NOTE | 2019-01-10 15:05 | PDOC ---
History of Present Illness - General Chief Complaint: Wound Stated Complaint: ABSESS ON RT LEG Time Seen by Provider: 01/10/19 13:26 History Source: Patient Exam Limitations: No Limitations - History of Present Illness Initial Comments: 01/10/19 14:52 43 yo male Past History - Past Medical History Allergies/Adverse Reactions: Allergies Allergy/AdvReac Type Severity Reaction Status Date / Time No Known Allergies Allergy Verified 01/10/19 13:04 Home Medications: Ambulatory Orders Methadone [Dolophine -] 60 mg PO DAILY 01/07/19 Anemia: No Asthma: No Cancer: No Cardiac Disorders: No CVA: No COPD: No CHF: No Dementia: No Diabetes: No GI Disorders: No Disorders: No HTN: No Hypercholesterolemia: No Kidney Stones: No Liver Disease: No Seizures: No Thyroid Disease: No - Surgical History Abdominal Surgery: No Appendectomy: No Cardiac Surgery: No Cholecystectomy: No Lung Surgery: No Neurologic Surgery: No Orthopedic Surgery: No - Reproductive History Testicular Surgery: No - Suicide/Smoking/Psychosocial Hx Smoking History: Current every day smoker Have you smoked in the past 12 months: No Number of Cigarettes Smoked Daily: 20 If you are a former smoker, when did you quit?: 2017 Cigars Per Day: 0 Information on smoking cessation initiated: No 'Breaking Loose' booklet given: 01/07/19 Hx Alcohol Use: No Drug/Substance Use Hx: No Substance Use Type: Alcohol, Heroin, Tranquilizers Hx Substance Use Treatment: Yes ([facility] 06/03) *Physical Exam - Vital Signs Last Vital Signs Temp Pulse Resp BP Pulse Ox 98.1 F 65 16 90/48 L 100 01/10/19 12:05 01/10/19 12:05 01/10/19 12:05 01/10/19 12:05 01/10/19 12:05 Medical Decision Making - Medical Decision Making 01/10/19 14:54 I&D to right posterior lower lower leg 4 ml lido for local sedation 1.5 cm incision length wren and 0.5 cm deep tolerated procedure well. Drained pus Culture attained After procedure pt has full sensation, strength and states pain has improved. Able to ambulate without difficulty Transfer back to Detox *DC/Admit/Observation/Transfer Diagnosis at time of Disposition: Abscess - Discharge Dispostion Disposition: HOME Condition at time of disposition: Stable Decision to Admit order: No - Referrals - Patient Instructions Printed Discharge Instructions: DI for Incision and Drainage, DI for Skin Abscess Additional Instructions: Please see your Primary Doctor within the next 48 hours. keep your wound clean, covered and dry until healed. Continue taking Bactrim as prescribed by [facility]. Return to the ER for new or concerning symptoms including but not limited to: high fevers, excessive pain, excessive drainage from the wound. Thank you - Post Discharge Activity
[2019-01-10 15:42] VITALS: BP 108/68; PULSE 64; TEMP 98.4
== END 2019-01-10 16:35 | disposition home or self-care (01) ==
LOC: JER 12:03
PROC: BH48ZZZ Ultrasonography of Lower Extremity (ICD-10-PCS; principal; 2019-01-10)
PROC: 0J9N0ZZ Drainage of Right Lower Leg Subcutaneous Tissue and Fascia, Open Approach (ICD-10-PCS; 2019-01-10)
DX: L02.415 Cutaneous abscess of right lower limb (principal); F11.10 Opioid abuse, uncomplicated; F10.10 Alcohol abuse, uncomplicated; F13.10 Sedative, hypnotic or anxiolytic abuse, uncomplicated; F14.10 Cocaine abuse, uncomplicated; F12.10 Cannabis abuse, uncomplicated
CPT/HCPCS: 10060; 76999; 87070; 87186; 87205; 99282-25

== ENCOUNTER 2019-01-11 13:19 | Inpatient (IN) | payer OTHER ==
[2019-01-11] MEDS ORDERED: LOPERAMIDE HCL 2 MG CAPSULE PO PRN (15:25)
[2019-01-11] MEDS ORDERED: ACETAMINOPHEN 325 MG TABLET (FP) PO PRN (15:25)
[2019-01-11] MEDS ORDERED: IBUPROFEN 400 MG TABLET (FP) PO PRN (15:25)
[2019-01-11] MEDS ORDERED: MAGNESIUM HYDROX 2400MG/30ML ORAL SUSPENSION 30 ML CUP PO PRN (15:25)
[2019-01-11] MEDS ORDERED: hydrOXYzine PAMOATE 25 MG CAPSULE (FP) PO PRN (15:25)
[2019-01-11] MEDS ORDERED: P-EPHED 60MG/TRIPROLIDI 2.5MG TABLET PO PRN (15:25)
[2019-01-11] MEDS ORDERED: MENTHOL/PHENOL 1 EACH UD MM PRN (15:25)
[2019-01-11] MEDS ORDERED: guaiFENesin 200 MG/10 ML 10 ML UNIT-DOSE CUPS PO PRN (15:25)
[2019-01-11] MEDS ORDERED: MAGNESIUM CITRATE 300 ML BOTTLE PO PRN (15:25)
--- NOTE | 2019-01-11 15:25 | HP ---
[facility] Rehab Assess/Revision - Admission History Admitted to Rehab from: [address] - Vital signs Vital Signs: Vital Signs Period Temp Pulse Resp BP Sys/Paez Pulse Ox Last 24 Hr 98.4 F 70 18 115/74 - Findings Detox History & Physical reviewed: Yes Concur with findings: Yes Inpatient Rehab Admission - Rehab Decision to Admit Inpatient rehab admission?: Yes - Initial Determination Are CD services needed?: Yes Free of communicable disease: Yes Not in need of hospitalization: Yes - Rehab Admission Criteria Previous failed treatment: Yes Poor recovery environment: Yes Comorbidities: Yes Lacks judgement: No Patient is meeting Inpatient Rehab admission criteria:: Yes
[2019-01-11] MEDS: SULFAMETHOXAZOLE/TRIMETHOPRIM 800MG/160MG D.S. TABLET PO SCH (22:48)
[2019-01-11] MEDS: THIAMINE HCL 100 MG TABLET (FP) PO SCH (22:48)
[2019-01-12] MEDS ORDERED: METHADONE HCL 40 MG DISPERSABLE TABLET ONE (05:48)
[2019-01-12] MEDS ORDERED: METHADONE HCL 10 MG TABLET ONE (05:48)
[2019-01-12] MEDS ORDERED: METHADONE HCL 5 MG TABLET PO SCH (06:00)
[2019-01-12] MEDS: METHADONE 40 MG, METHADONE 20 MG PO SCH (06:23)
[2019-01-12] MEDS: SULFAMETHOXAZOLE/TRIMETHOPRIM 800MG/160MG D.S. TABLET PO SCH ×2 (10:07→21:49)
[2019-01-12] MEDS: BACITRACIN 0.9 GM PACKET TP SCH (10:07)
[2019-01-12] MEDS: PRENATAL VITAMINS W/ FOLIC ACID TABLET (FP) PO SCH (10:07)
[2019-01-12] MEDS: MAG HYDROX/AL HYDROX/SIMETH 30 ML UNIT-DOSE CUP PO PRN (17:31)
[2019-01-12] MEDS: THIAMINE HCL 100 MG TABLET (FP) PO SCH (21:49)
[2019-01-12] MEDS: MELATONIN 5 MG TABLETS PO PRN (21:49)
[2019-01-13] MEDS ORDERED: METHADONE HCL 10 MG TABLET ONE (03:55)
[2019-01-13] MEDS ORDERED: METHADONE HCL 40 MG DISPERSABLE TABLET ONE (03:55)
[2019-01-13] MEDS: METHADONE 40 MG, METHADONE 20 MG PO SCH (05:59)
[2019-01-13] MEDS: PRENATAL VITAMINS W/ FOLIC ACID TABLET (FP) PO SCH (10:08)
[2019-01-13] MEDS: SULFAMETHOXAZOLE/TRIMETHOPRIM 800MG/160MG D.S. TABLET PO SCH ×2 (10:08→21:04)
[2019-01-13] MEDS: BACITRACIN 0.9 GM PACKET TP SCH (10:08)
[2019-01-13] MEDS: MAG HYDROX/AL HYDROX/SIMETH 30 ML UNIT-DOSE CUP PO PRN (19:03)
[2019-01-13] MEDS: THIAMINE HCL 100 MG TABLET (FP) PO SCH (21:04)
[2019-01-13] MEDS: MELATONIN 5 MG TABLETS PO PRN (21:04)
[2019-01-14] MEDS: MAG HYDROX/AL HYDROX/SIMETH 30 ML UNIT-DOSE CUP PO PRN ×2 (00:47→10:42)
[2019-01-14] MEDS ORDERED: METHADONE HCL 40 MG DISPERSABLE TABLET ONE (04:20)
[2019-01-14] MEDS ORDERED: METHADONE HCL 10 MG TABLET ONE (04:20)
[2019-01-14] MEDS: METHADONE 40 MG, METHADONE 20 MG PO SCH (05:49)
[2019-01-14] MEDS: PRENATAL VITAMINS W/ FOLIC ACID TABLET (FP) PO SCH (09:56)
[2019-01-14] MEDS: BACITRACIN 0.9 GM PACKET TP SCH (09:56)
[2019-01-14] MEDS: SULFAMETHOXAZOLE/TRIMETHOPRIM 800MG/160MG D.S. TABLET PO SCH ×2 (09:56→21:01)
[2019-01-14] MEDS: MELATONIN 5 MG TABLETS PO PRN (21:01)
[2019-01-14] MEDS: THIAMINE HCL 100 MG TABLET (FP) PO SCH (21:01)
[2019-01-15] MEDS ORDERED: METHADONE HCL 10 MG TABLET ONE (04:52)
[2019-01-15] MEDS ORDERED: METHADONE HCL 40 MG DISPERSABLE TABLET ONE (04:52)
[2019-01-15] MEDS: METHADONE 40 MG, METHADONE 20 MG PO SCH (05:54)
[2019-01-15 06:48] VITALS: BP 113/71; PULSE 86; TEMP 98
--- NOTE | 2019-01-15 08:33 | PN ---
[facility] Progress Note (SOAP) Subjective: Patient is leaving because he states he must go back to work. Objective: no neurological deficits noted, CN2-12 intact. Lungs clear, Heart rate rate regular, S1 S2 audible, abdomen soft, non-tender, non-distended. 01/15/19 08:31 Vital Signs (72 hours) 01/13/19 01/13/19 01/14/19 03:30 06:55 03:30 Temperature 97.9 F Pulse Rate 71 Respiratory 18 18 18 Rate Blood Pressure 109/63 01/14/19 01/15/19 01/15/19 07:23 03:30 06:48 Temperature 97.7 F 98 F Pulse Rate 83 86 Respiratory 18 18 18 Rate Blood Pressure 118/67 113/71 Assessment: 01/15/19 08:32 Medically stable for discharge Discharge dx: 01/15/19 09:47 cocaine dependence, chronic ETOH dependence, chronic MMTP Plan: [facility] is going [facility] and the counselor there will help him get a primary care provider. Bactrim prescription for abscess transmitted to pharmacy
== END 2019-01-15 08:45 | disposition left against medical advice (07) | DRG 770 ==
LOC: YASAS 13:19 → Y3W 13:21
PROVIDERS: ADMIT Neuromusculoskeletal Medicine & OMM; ATTEND Neuromusculoskeletal Medicine & OMM
PROC: HZ42ZZZ Group Counseling for Substance Abuse Treatment, Cognitive-Behavioral (ICD-10-PCS; principal; 2019-01-11)
DX: F10.20 Alcohol dependence, uncomplicated (principal); F14.20 Cocaine dependence, uncomplicated; F11.20 Opioid dependence, uncomplicated
CPT/HCPCS: 71046-TC-FY

== ENCOUNTER 2022-05-31 12:36 | Inpatient (IN) | payer OTHER ==
[2022-05-31 13:57] VITALS: BMI 21.7
[2022-05-31] MEDS ORDERED: NALOXONE HCL (KLOXXADO) 8 MG SPRAY NS PRN (15:40)
[2022-05-31] MEDS ORDERED: MAGNESIUM HYDROX 2400MG/30ML ORAL SUSPENSION 30 ML CUP PO PRN (15:40)
[2022-05-31] MEDS ORDERED: NICOTINE 10 MG CARTRIDGE (INHALER) IH PRN (15:40)
[2022-05-31] MEDS ORDERED: ACETAMINOPHEN 325 MG TABLET (FP) PO PRN ×2 (15:40)
[2022-05-31] MEDS ORDERED: IBUPROFEN 600 MG TABLET (FP) PO PRN (15:40)
[2022-05-31] MEDS ORDERED: NICOTINE POLACRILEX 4 MG GUM BUC PRN (15:40)
[2022-05-31] MEDS ORDERED: BISMUTH SUBSALICYLATE 524 MG/30 ML PO PRN (15:40)
[2022-05-31] MEDS ORDERED: IBUPROFEN 400 MG TABLET (FP) PO PRN (15:40)
[2022-05-31] MEDS ORDERED: DICYCLOMINE HCL 10 MG CAPSULE PO PRN (15:40)
[2022-05-31] MEDS ORDERED: ONDANSETRON *ODT* 4 MG TABLET SL PRN (15:40)
[2022-05-31] MEDS ORDERED: BENZOCAINE/MENTHOL (CHLORASEPTIC ) LOZENGE MM PRN (15:40)
[2022-05-31] MEDS ORDERED: MAGNESIUM CITRATE 300 ML BOTTLE PO PRN (15:40)
[2022-05-31] MEDS ORDERED: LOPERAMIDE HCL 2 MG CAPSULE PO PRN (15:40)
[2022-05-31] MEDS ORDERED: diazePAM 5 MG TABLET PO PRN (15:40)
[2022-05-31] MEDS ORDERED: MAG HYDROX/AL HYDROX/SIMETH 30 ML UNIT-DOSE CUP PO PRN (15:40)
[2022-05-31] MEDS ORDERED: hydrOXYzine PAMOATE 25 MG CAPSULE (FP) PO SCH (18:00)
[2022-05-31] MEDS ORDERED: methaDONE HCL 40 MG DISPERSABLE TABLET PO SCH (19:17)
[2022-05-31] MEDS: methaDONE 40 MG, methaDONE 20 MG PO SCH (20:04)
[2022-05-31] MEDS: diazePAM 5 MG TABLET PO SCH ×2 (20:06→22:51)
[2022-05-31] MEDS: hydrOXYzine PAMOATE 25 MG CAPSULE (FP) PO PRN (20:07)
[2022-05-31] MEDS: NICOTINE 21 MG/24 HOURS TOPICAL PATCH TD SCH (20:09)
[2022-05-31] MEDS: AMOXICILLIN 500 MG CAPSULE (FP) PO SCH (22:49)
[2022-05-31] MEDS: THIAMINE HCL 100 MG TABLET (FP) PO SCH (22:49)
[2022-05-31] MEDS: MELATONIN 5 MG TABLETS PO SCH (22:51)
[2022-06-01] MEDS: methaDONE 40 MG, methaDONE 20 MG PO SCH (06:32)
[2022-06-01] MEDS: diazePAM 5 MG TABLET PO SCH ×4 (06:32→22:30)
[2022-06-01] MEDS: NICOTINE 21 MG/24 HOURS TOPICAL PATCH TD SCH (10:43)
[2022-06-01] MEDS: AMOXICILLIN 500 MG CAPSULE (FP) PO SCH ×2 (10:43→22:30)
[2022-06-01] MEDS: PRENATAL VITAMINS W/ FOLIC ACID TABLET (FP) PO SCH (10:44)
[2022-06-01] MEDS: METHOCARBAMOL 500 MG TABLET PO PRN (22:30)
[2022-06-01] MEDS: THIAMINE HCL 100 MG TABLET (FP) PO SCH (22:30)
[2022-06-01] MEDS: hydrOXYzine PAMOATE 25 MG CAPSULE (FP) PO PRN (22:30)
[2022-06-01] MEDS: MELATONIN 5 MG TABLETS PO SCH (22:31)
[2022-06-02] MEDS: diazePAM 5 MG TABLET PO SCH ×3 (05:43→22:46)
[2022-06-02] MEDS: methaDONE 40 MG, methaDONE 20 MG PO SCH (05:43)
[2022-06-02] MEDS: PRENATAL VITAMINS W/ FOLIC ACID TABLET (FP) PO SCH (10:44)
[2022-06-02] MEDS: NICOTINE 21 MG/24 HOURS TOPICAL PATCH TD SCH (10:44)
[2022-06-02] MEDS: AMOXICILLIN 500 MG CAPSULE (FP) PO SCH ×2 (10:44→22:45)
[2022-06-02] MEDS: hydrOXYzine PAMOATE 25 MG CAPSULE (FP) PO PRN (10:45)
[2022-06-02] MEDS: METHOCARBAMOL 500 MG TABLET PO PRN (10:45)
[2022-06-02] MEDS: THIAMINE HCL 100 MG TABLET (FP) PO SCH (22:46)
[2022-06-02] MEDS: MELATONIN 5 MG TABLETS PO SCH (22:46)
[2022-06-03] MEDS: methaDONE 40 MG, methaDONE 20 MG PO SCH (06:00)
[2022-06-03] MEDS: diazePAM 5 MG TABLET PO SCH ×2 (06:03→18:37)
[2022-06-03] MEDS: PRENATAL VITAMINS W/ FOLIC ACID TABLET (FP) PO SCH (10:15)
[2022-06-03] MEDS: AMOXICILLIN 500 MG CAPSULE (FP) PO SCH ×2 (10:15→22:51)
[2022-06-03] MEDS: NICOTINE 21 MG/24 HOURS TOPICAL PATCH TD SCH (10:15)
[2022-06-03] MEDS: THIAMINE HCL 100 MG TABLET (FP) PO SCH (22:51)
[2022-06-03] MEDS: MELATONIN 5 MG TABLETS PO SCH (22:51)
[2022-06-03] MEDS: hydrOXYzine PAMOATE 25 MG CAPSULE (FP) PO PRN (22:51)
[2022-06-04] MEDS: methaDONE 40 MG, methaDONE 20 MG PO SCH (05:38)
[2022-06-04] MEDS ORDERED: diazePAM 5 MG TABLET PO ONE (06:00)
[2022-06-04 09:31] VITALS: BP 105/61; PULSE 74; RESP 16; TEMP 88.4
[2022-06-04] MEDS: PRENATAL VITAMINS W/ FOLIC ACID TABLET (FP) PO SCH (09:59)
[2022-06-04] MEDS: AMOXICILLIN 500 MG CAPSULE (FP) PO SCH (09:59)
[2022-06-04] MEDS: NICOTINE 21 MG/24 HOURS TOPICAL PATCH TD SCH (10:00)
[2022-06-04] MEDS ORDERED: LOPERAMIDE HCL 2 MG CAPSULE PO PRN (14:06)
[2022-06-04] MEDS ORDERED: ACETAMINOPHEN 325 MG TABLET (FP) PO PRN (14:06)
[2022-06-04] MEDS ORDERED: MAG HYDROX/AL HYDROX/SIMETH 30 ML UNIT-DOSE CUP PO PRN (14:06)
[2022-06-04] MEDS ORDERED: BENZOCAINE/MENTHOL (CHLORASEPTIC ) LOZENGE MM PRN (14:06)
[2022-06-04] MEDS ORDERED: guaiFENesin 200 MG/10 ML 10 ML UNIT-DOSE CUPS PO PRN (14:06)
[2022-06-04] MEDS ORDERED: MAGNESIUM CITRATE 300 ML BOTTLE PO PRN (14:06)
[2022-06-04] MEDS ORDERED: NICOTINE 10 MG CARTRIDGE (INHALER) IH PRN (14:06)
[2022-06-04] MEDS ORDERED: P-EPHED 60MG/TRIPROLIDI 2.5MG TABLET PO PRN (14:06)
[2022-06-04] MEDS ORDERED: MAGNESIUM HYDROX 2400MG/30ML ORAL SUSPENSION 30 ML CUP PO PRN (14:06)
[2022-06-04] MEDS ORDERED: IBUPROFEN 400 MG TABLET (FP) PO PRN (14:06)
[2022-06-04] MEDS ORDERED: METHOCARBAMOL 500 MG TABLET PO PRN (14:08)
[2022-06-04] MEDS ORDERED: hydrOXYzine PAMOATE 25 MG CAPSULE (FP) PO SCH (18:00)
[2022-06-04] MEDS ORDERED: THIAMINE HCL 100 MG TABLET (FP) PO SCH (22:00)
[2022-06-04] MEDS ORDERED: MELATONIN 5 MG TABLETS PO SCH (22:00)
[2022-06-05] MEDS ORDERED: methaDONE 40 MG, methaDONE 30 MG PO SCH (06:00)
[2022-06-05] MEDS ORDERED: methaDONE HCL 10 MG TABLET PO SCH (06:00)
[2022-06-05] MEDS ORDERED: NICOTINE 7 MG/24 HOURS TOPICAL PATCH TD SCH (10:00)
[2022-06-05] MEDS ORDERED: PRENATAL VITAMINS W/ FOLIC ACID TABLET (FP) PO SCH (10:00)
== END 2022-06-04 12:45 | disposition other institution (70) | DRG 773 ==
LOC: YASAS 12:36 → Y6N 16:18
PROVIDERS: ADMIT Allergy & Immunology; ATTEND Surgery
PROC: HZ2ZZZZ Detoxification Services for Substance Abuse Treatment (ICD-10-PCS; principal; 2022-05-31)
DX: F10.230 Alcohol dependence with withdrawal, uncomplicated (principal); F13.230 Sedative, hypnotic or anxiolytic dependence with withdrawal, uncomplicated; F11.20 Opioid dependence, uncomplicated; F14.20 Cocaine dependence, uncomplicated; F12.20 Cannabis dependence, uncomplicated; F17.210 Nicotine dependence, cigarettes, uncomplicated; F19.282 Other psychoactive substance dependence with psychoactive substance-induced sleep disorder; L02.414 Cutaneous abscess of left upper limb; R76.11 Nonspecific reaction to tuberculin skin test without active tuberculosis; R60.0 Localized edema; R63.4 Abnormal weight loss; Z68.21 Body mass index [BMI] 21.0-21.9, adult; Z59.02 Unsheltered homelessness
CPT/HCPCS: 87811; C9803-CS; U0003; U0005

== ENCOUNTER 2022-06-04 13:03 | Inpatient (IN) | payer OTHER ==
[2022-06-04] MEDS ORDERED: guaiFENesin 200 MG/10 ML 10 ML UNIT-DOSE CUPS PO PRN (13:05)
[2022-06-04] MEDS ORDERED: ACETAMINOPHEN 325 MG TABLET (FP) PO PRN (13:05)
[2022-06-04] MEDS ORDERED: MAGNESIUM HYDROX 2400MG/30ML ORAL SUSPENSION 30 ML CUP PO PRN (13:05)
[2022-06-04] MEDS ORDERED: MAGNESIUM CITRATE 300 ML BOTTLE PO PRN (13:05)
[2022-06-04] MEDS ORDERED: LOPERAMIDE HCL 2 MG CAPSULE PO PRN (13:05)
[2022-06-04] MEDS ORDERED: NICOTINE 10 MG CARTRIDGE (INHALER) IH PRN (13:05)
[2022-06-04] MEDS ORDERED: P-EPHED 60MG/TRIPROLIDI 2.5MG TABLET PO PRN (13:05)
[2022-06-04] MEDS ORDERED: NICOTINE POLACRILEX 2 MG GUM BC PRN (13:05)
[2022-06-04] MEDS ORDERED: MAG HYDROX/AL HYDROX/SIMETH 30 ML UNIT-DOSE CUP PO PRN (13:05)
[2022-06-04] MEDS: AMOXICILLIN 500 MG CAPSULE (FP) PO SCH (21:33)
[2022-06-04] MEDS: MELATONIN 5 MG TABLETS PO SCH (21:33)
[2022-06-04] MEDS: THIAMINE HCL 100 MG TABLET (FP) PO SCH (21:33)
[2022-06-04] MEDS: METHOCARBAMOL 500 MG TABLET PO SCH (21:33)
[2022-06-04] MEDS: hydrOXYzine PAMOATE 25 MG CAPSULE (FP) PO PRN (21:33)
[2022-06-05] MEDS ORDERED: methaDONE HCL 10 MG TABLET PO SCH (06:00)
[2022-06-05] MEDS: methaDONE 40 MG, methaDONE 30 MG PO SCH (06:24)
[2022-06-05] MEDS: METHOCARBAMOL 500 MG TABLET PO SCH ×3 (06:25→21:30)
[2022-06-05] MEDS ORDERED: NICOTINE 7 MG/24 HOURS TOPICAL PATCH TD SCH (10:00)
[2022-06-05] MEDS: PRENATAL VITAMINS W/ FOLIC ACID TABLET (FP) PO SCH (10:25)
[2022-06-05] MEDS: hydrOXYzine PAMOATE 25 MG CAPSULE (FP) PO PRN ×2 (10:25→13:54)
[2022-06-05] MEDS: AMOXICILLIN 500 MG CAPSULE (FP) PO SCH ×2 (10:25→21:29)
[2022-06-05] MEDS: IBUPROFEN 400 MG TABLET (FP) PO PRN (10:28)
[2022-06-05] MEDS: NICOTINE 7 MG/24 HOURS TOPICAL PATCH TD SCH (10:29)
[2022-06-05] MEDS: MELATONIN 5 MG TABLETS PO SCH (21:29)
[2022-06-05] MEDS: THIAMINE HCL 100 MG TABLET (FP) PO SCH (21:29)
[2022-06-06] MEDS: methaDONE 40 MG, methaDONE 30 MG PO SCH (05:53)
[2022-06-06] MEDS: METHOCARBAMOL 500 MG TABLET PO SCH ×3 (05:53→21:14)
[2022-06-06] MEDS: PRENATAL VITAMINS W/ FOLIC ACID TABLET (FP) PO SCH (09:36)
[2022-06-06] MEDS: AMOXICILLIN 500 MG CAPSULE (FP) PO SCH ×2 (09:36→21:14)
[2022-06-06] MEDS: NICOTINE 7 MG/24 HOURS TOPICAL PATCH TD SCH (09:36)
[2022-06-06] MEDS: IBUPROFEN 400 MG TABLET (FP) PO PRN (09:37)
[2022-06-06] MEDS: MELATONIN 5 MG TABLETS PO SCH (21:14)
[2022-06-06] MEDS: THIAMINE HCL 100 MG TABLET (FP) PO SCH (21:14)
[2022-06-07] MEDS: methaDONE 40 MG, methaDONE 30 MG PO SCH (06:34)
[2022-06-07] MEDS: METHOCARBAMOL 500 MG TABLET PO SCH ×3 (06:36→21:16)
[2022-06-07] MEDS: NICOTINE 7 MG/24 HOURS TOPICAL PATCH TD SCH (09:52)
[2022-06-07] MEDS: AMOXICILLIN 500 MG CAPSULE (FP) PO SCH ×2 (09:52→21:16)
[2022-06-07] MEDS: PRENATAL VITAMINS W/ FOLIC ACID TABLET (FP) PO SCH (09:52)
[2022-06-07] MEDS: MELATONIN 5 MG TABLETS PO SCH (21:16)
[2022-06-07] MEDS: THIAMINE HCL 100 MG TABLET (FP) PO SCH (21:16)
[2022-06-08] MEDS: METHOCARBAMOL 500 MG TABLET PO SCH ×3 (06:05→21:09)
[2022-06-08] MEDS: methaDONE 40 MG, methaDONE 30 MG PO SCH (06:05)
[2022-06-08] MEDS: PRENATAL VITAMINS W/ FOLIC ACID TABLET (FP) PO SCH (09:57)
[2022-06-08] MEDS: NICOTINE 7 MG/24 HOURS TOPICAL PATCH TD SCH (09:57)
[2022-06-08] MEDS: THIAMINE HCL 100 MG TABLET (FP) PO SCH (21:09)
[2022-06-08] MEDS: MELATONIN 5 MG TABLETS PO SCH (21:09)
[2022-06-09] MEDS: methaDONE 40 MG, methaDONE 30 MG PO SCH (06:33)
[2022-06-09] MEDS: METHOCARBAMOL 500 MG TABLET PO SCH ×3 (06:33→21:30)
[2022-06-09 06:48] VITALS: RESP 18
[2022-06-09] MEDS: PRENATAL VITAMINS W/ FOLIC ACID TABLET (FP) PO SCH (09:38)
[2022-06-09] MEDS: hydrOXYzine PAMOATE 25 MG CAPSULE (FP) PO PRN ×2 (09:39→21:31)
[2022-06-09] MEDS: NICOTINE 7 MG/24 HOURS TOPICAL PATCH TD SCH (09:39)
[2022-06-09] MEDS: THIAMINE HCL 100 MG TABLET (FP) PO SCH (21:31)
[2022-06-09] MEDS: MELATONIN 5 MG TABLETS PO SCH (21:31)
[2022-06-10] MEDS: methaDONE 40 MG, methaDONE 30 MG PO SCH (06:35)
[2022-06-10] MEDS: METHOCARBAMOL 500 MG TABLET PO SCH ×3 (06:36→21:30)
[2022-06-10] MEDS: PRENATAL VITAMINS W/ FOLIC ACID TABLET (FP) PO SCH (10:23)
[2022-06-10] MEDS: hydrOXYzine PAMOATE 25 MG CAPSULE (FP) PO PRN (10:23)
[2022-06-10] MEDS: NICOTINE 7 MG/24 HOURS TOPICAL PATCH TD SCH (10:24)
[2022-06-10] MEDS: MELATONIN 5 MG TABLETS PO SCH (21:30)
[2022-06-10] MEDS: THIAMINE HCL 100 MG TABLET (FP) PO SCH (21:30)
[2022-06-11] MEDS: methaDONE 40 MG, methaDONE 30 MG PO SCH (06:13)
[2022-06-11] MEDS: hydrOXYzine PAMOATE 25 MG CAPSULE (FP) PO PRN (06:14)
[2022-06-11] MEDS: METHOCARBAMOL 500 MG TABLET PO SCH ×3 (06:14→21:26)
[2022-06-11] MEDS: PRENATAL VITAMINS W/ FOLIC ACID TABLET (FP) PO SCH (09:42)
[2022-06-11] MEDS: NICOTINE 7 MG/24 HOURS TOPICAL PATCH TD SCH (09:42)
[2022-06-11] MEDS: MELATONIN 5 MG TABLETS PO SCH (21:26)
[2022-06-11] MEDS: THIAMINE HCL 100 MG TABLET (FP) PO SCH (21:26)
[2022-06-12] MEDS: hydrOXYzine PAMOATE 25 MG CAPSULE (FP) PO PRN (06:40)
[2022-06-12] MEDS: METHOCARBAMOL 500 MG TABLET PO SCH ×3 (06:40→21:26)
[2022-06-12] MEDS: methaDONE 40 MG, methaDONE 30 MG PO SCH (06:41)
[2022-06-12] MEDS: PRENATAL VITAMINS W/ FOLIC ACID TABLET (FP) PO SCH (10:23)
[2022-06-12] MEDS: NICOTINE 7 MG/24 HOURS TOPICAL PATCH TD SCH (10:24)
[2022-06-12] MEDS: THIAMINE HCL 100 MG TABLET (FP) PO SCH (21:26)
[2022-06-12] MEDS: MELATONIN 5 MG TABLETS PO SCH (21:26)
[2022-06-13] MEDS: methaDONE 40 MG, methaDONE 30 MG PO SCH (06:37)
[2022-06-13] MEDS: hydrOXYzine PAMOATE 25 MG CAPSULE (FP) PO PRN ×2 (06:38→09:47)
[2022-06-13] MEDS: METHOCARBAMOL 500 MG TABLET PO SCH ×3 (06:38→21:20)
[2022-06-13] MEDS: PRENATAL VITAMINS W/ FOLIC ACID TABLET (FP) PO SCH (09:47)
[2022-06-13] MEDS: NICOTINE 7 MG/24 HOURS TOPICAL PATCH TD SCH (11:05)
[2022-06-13] MEDS: THIAMINE HCL 100 MG TABLET (FP) PO SCH (21:20)
[2022-06-13] MEDS: MELATONIN 5 MG TABLETS PO SCH (21:20)
[2022-06-14] MEDS: METHOCARBAMOL 500 MG TABLET PO SCH ×3 (06:21→21:15)
[2022-06-14] MEDS: methaDONE 40 MG, methaDONE 30 MG PO SCH (06:21)
[2022-06-14] MEDS: hydrOXYzine PAMOATE 25 MG CAPSULE (FP) PO PRN (06:22)
[2022-06-14] MEDS: NICOTINE 7 MG/24 HOURS TOPICAL PATCH TD SCH (10:04)
[2022-06-14] MEDS: PRENATAL VITAMINS W/ FOLIC ACID TABLET (FP) PO SCH (10:04)
[2022-06-14] MEDS: MELATONIN 5 MG TABLETS PO SCH (21:15)
[2022-06-14] MEDS: THIAMINE HCL 100 MG TABLET (FP) PO SCH (21:15)
[2022-06-15] MEDS: METHOCARBAMOL 500 MG TABLET PO SCH ×3 (06:53→21:48)
[2022-06-15] MEDS: methaDONE 40 MG, methaDONE 30 MG PO SCH (06:53)
[2022-06-15] MEDS: NICOTINE 7 MG/24 HOURS TOPICAL PATCH TD SCH (09:51)
[2022-06-15] MEDS: PRENATAL VITAMINS W/ FOLIC ACID TABLET (FP) PO SCH (09:51)
[2022-06-15] MEDS: THIAMINE HCL 100 MG TABLET (FP) PO SCH (21:48)
[2022-06-15] MEDS: MELATONIN 5 MG TABLETS PO SCH (21:48)
[2022-06-16] MEDS: METHOCARBAMOL 500 MG TABLET PO SCH ×3 (06:27→21:44)
[2022-06-16] MEDS: methaDONE 40 MG, methaDONE 30 MG PO SCH (06:27)
[2022-06-16] MEDS: NICOTINE 7 MG/24 HOURS TOPICAL PATCH TD SCH (10:18)
[2022-06-16] MEDS: PRENATAL VITAMINS W/ FOLIC ACID TABLET (FP) PO SCH (10:18)
[2022-06-16] MEDS: THIAMINE HCL 100 MG TABLET (FP) PO SCH (21:44)
[2022-06-16] MEDS: MELATONIN 5 MG TABLETS PO SCH (21:44)
[2022-06-17] MEDS: METHOCARBAMOL 500 MG TABLET PO SCH ×3 (06:01→21:03)
[2022-06-17] MEDS: methaDONE 40 MG, methaDONE 30 MG PO SCH (06:01)
[2022-06-17] MEDS: PRENATAL VITAMINS W/ FOLIC ACID TABLET (FP) PO SCH (10:05)
[2022-06-17] MEDS: NICOTINE 7 MG/24 HOURS TOPICAL PATCH TD SCH (10:06)
[2022-06-17] MEDS: MELATONIN 5 MG TABLETS PO SCH (21:03)
[2022-06-17] MEDS: THIAMINE HCL 100 MG TABLET (FP) PO SCH (21:03)
[2022-06-18] MEDS: methaDONE 40 MG, methaDONE 30 MG PO SCH (06:31)
[2022-06-18] MEDS: METHOCARBAMOL 500 MG TABLET PO SCH (06:32)
[2022-06-18 06:48] VITALS: BP 110/72; PULSE 70; TEMP 97.5
[2022-06-18] MEDS: PRENATAL VITAMINS W/ FOLIC ACID TABLET (FP) PO SCH (09:37)
[2022-06-18] MEDS: NICOTINE 7 MG/24 HOURS TOPICAL PATCH TD SCH (10:42)
== END 2022-06-18 10:05 | disposition home or self-care (01) | DRG 772 ==
LOC: YASAS 13:03 → Y3W 13:04
PROVIDERS: ADMIT Allergy & Immunology; ATTEND Psychiatry & Neurology Pain Medicine
PROC: HZ42ZZZ Group Counseling for Substance Abuse Treatment, Cognitive-Behavioral (ICD-10-PCS; principal; 2022-06-04)
DX: F11.20 Opioid dependence, uncomplicated (principal); F10.20 Alcohol dependence, uncomplicated; F14.20 Cocaine dependence, uncomplicated; F12.20 Cannabis dependence, uncomplicated; F17.210 Nicotine dependence, cigarettes, uncomplicated; F19.282 Other psychoactive substance dependence with psychoactive substance-induced sleep disorder; L02.414 Cutaneous abscess of left upper limb; R60.0 Localized edema
CPT/HCPCS: 71045-TC-FY